=== PATIENT | female | born 1985 | race Caucasian/White ===

== ENCOUNTER 2022-08-22 15:17 | Outpatient (REF) | payer BC, SELFPAY ==
[2022-08-27 10:55] LABS: H Pylori Breath Test Negative (Negative)
== END 2022-08-22 15:18 | disposition home or self-care (01) ==
LOC: HO.LNP 15:17
PROVIDERS: Visit Provider Physician Assistant
DX: Z01.818 Encounter for other preprocedural examination (principal); E66.01 Morbid (severe) obesity due to excess calories; K21.9 Gastro-esophageal reflux disease without esophagitis; Z90.3 Acquired absence of stomach [part of]
CPT/HCPCS: 83013

== ENCOUNTER 2022-09-10 11:08 | Outpatient (REF) | payer BC, SELFPAY ==
--- NOTE | ~2022-09-10 | XR_ITS ---
EXAMINATION: XR CHEST CLINICAL INFORMATION: Gastroesophageal reflux COMPARISON: None TECHNIQUE: 2 views of the chest were obtained. FINDINGS: No significant abnormality is noted involving the heart, lungs, mediastinum, bony thorax or soft tissues. XR/XR chest 2V IMPRESSION: Unremarkable examination.
--- NOTE | 2022-09-10 11:17 | ECG_ITS ---
Test Reason : gerd Blood Pressure : / mmHG Vent. Rate : 060 BPM Atrial Rate : 060 BPM P-R Int : 178 ms QRS Dur : 090 ms QT Int : 424 ms P-R-T Axes : 032 062 052 degrees QTc Int : 424 ms Normal sinus rhythm Normal ECG No previous ECGs available Referred By: Zina Guerrero Electronically Signed By:HENRY HOPKINS MD
[2022-09-10 11:29] LABS: MANUAL DIFF FLAG NO
[2022-09-10 11:42] LABS: Basophils Percent Auto 0.6 % (0-2); Eosinophils Absolute Auto 0.4 X10*3/uL (0.0-0.4); Eosinophils Percent Auto 7.3 % (0-4); Hematocrit 34.6 % (37.0-47.0); Hemoglobin 10.9 g/dl (12.0-16.0); Imm Gran Abs Auto 0.01 X10*3/uL (0.00-0.03); Imm Gran Pct Auto 0.2 % (0.0-0.4); Lymphocytes Absolute Auto 1.3 X10*3/uL (1.2-4.9); Lymphocytes Percent Auto 24.8 % (20-40); Mean Corpuscular HGB Conc 31.5 g/dl (31.0-35.0); Mean Corpuscular Hemoglobin 25.1 pg (27.0-33.0); Mean Corpuscular Volume 79.7 fL (80.0-98.0); Monocytes Absolute Auto 0.5 X10*3/uL (0.1-1.2); Monocytes Percent Auto 8.6 % (2-11); Neutrophils Absolute Auto 3.1 x10*3/uL (2.0-8.3); Neutrophils Percent Auto 58.5 % (45-73); Platelet Count 227 X10*3/uL (160-400); Red Blood Count 4.34 X10*6/uL (4.20-5.50); Red Cell Distribution Width 13.9 % (11.0-16.0); White Blood Count 5.3 X10*3/uL (4.8-10.8)
[2022-09-10 12:19] LABS: Estimated Average Glucose 91 mg/dL; Hemoglobin A1c % 4.8 %
[2022-09-10 13:03] LABS: Alanine Aminotransferase 12 U/L (0-31); Albumin Level 3.7 g/dL (3.5-5.0); Alkaline Phosphatase 54 U/L (39-117); Anion Gap 11 (12-20); Aspartate Amino Transferase 14 U/L (5-31); Bilirubin Total 0.6 mg/dL (0.0-1.0); Blood Urea Nitrogen 11 mg/dL (9-16); Carbon Dioxide 26 mmol/L (22-29); Chloride 112 mmol/L (96-108); Cholesterol 128 mg/dL; Estimated Glomerular Filt Rate > 60; Glucose Random 89 mg/dL (60-115); HDL Cholesterol 41 mg/dL; Iron 27 mcg/dL (30-160); LDL Cholesterol Calculated 73 mg/dl; Percent Iron Saturation 8 % (15-50); Potassium 4.7 mmol/L (3.3-5.1); Sodium 144 mmol/L (135-145); Total Iron Binding Capacity 352 mcg/dL (228-428); Total Protein 6.6 g/dL (6.5-8.0); Triglycerides 71 mg/dL; Unsaturated Iron Binding 325 ug/dL
[2022-09-10 13:27] LABS: Folate 11.5 ng/mL (> or = 4.0); Vitamin B12 640 pg/mL (200-900)
[2022-09-10 13:30] LABS: Ferritin 5 ng/mL (10-122); Insulin 6 uU/mL (2-29); TSH reflex Free T4 2.06 uIU/mL (0.32-4.0); Vitamin D 25-OH Total 22.5 ng/mL (>30)
[2022-09-11 17:48] LABS: Calcium (PTHI) 9.1 mg/dL (8.6-10.2); PTHI 68 pg/mL (16-77)
[2022-09-14 01:29] LABS: Zinc 65 mcg/dL (60-130)
[2022-09-14 10:19] LABS: Vitamin B1 <6 nmol/L (8-30)
[2022-09-14 17:24] LABS: Vitamin A 31 mcg/dL (38-98)
== END 2022-09-10 11:09 | disposition home or self-care (01) ==
LOC: HO.XRAY 11:08
PROVIDERS: Visit Provider Physician Assistant
DX: Z01.818 Encounter for other preprocedural examination (principal); E66.01 Morbid (severe) obesity due to excess calories; K21.9 Gastro-esophageal reflux disease without esophagitis; Z90.3 Acquired absence of stomach [part of]
CPT/HCPCS: 36415; 71046; 80053; 80061; 82306; 82607; 82728; 82746; 83036; 83525; 83540; 83970; 84425; 84443; 84590; 84630; 85025; 86140; 93005

== ENCOUNTER → 2022-09-12 09:51 | Outpatient (BNVA) | payer BC, SELFPAY | PROVIDERS: Visit Provider Physician Assistant | DX: E66.01 Morbid (severe) obesity due to excess calories (principal) ==

== ENCOUNTER → 2022-09-18 11:36 | Outpatient (BNVA) | payer BC, SELFPAY | PROVIDERS: Visit Provider Dietitian, Registered | DX: E66.01 Morbid (severe) obesity due to excess calories (principal); Z71.3 Dietary counseling and surveillance | CPT/HCPCS: 97802 ==

== ENCOUNTER → 2022-10-03 10:30 | Outpatient (BNVA) | payer BC, SELFPAY | PROVIDERS: Visit Provider Physician Assistant | DX: E66.01 Morbid (severe) obesity due to excess calories (principal) ==

== ENCOUNTER 2022-10-11 08:07 | Outpatient (REF) | payer BC, SELFPAY ==
--- NOTE | ~2022-10-11 | US_ITS ---
EXAMINATION: US COMPLETE ABDOMEN WITH LIVER ELASTOGRAPHY CLINICAL INFORMATION: Gastroesophageal reflux disease without esophagitis. COMPARISON: None. TECHNIQUE: Real-time imaging of the abdominal viscera. Noninvasive ultrasound liver fibrosis assessment is performed using Anna ElastPQ point quantification shear wave elastography (2D-SWE) with a C5-2 MHz transducer. Multiple elastography samples are obtained. FINDINGS: PANCREAS: Normal. The visualized pancreatic head and body are normal in appearance. The remainder of the pancreas is obscured from visualization by the overlying bowel gas. ABDOMINAL AORTA: The proximal, middle, and distal aortic segments are normal in caliber. INFERIOR VENA CAVA: Visualized portions are normal. LIVER: The liver demonstrates normal size, contour and increased echogenicity. No focal lesion or intrahepatic biliary duct dilatation. The right lobe measures 16.4 cm in length. The left lobe measures 10.4 cm in length. Portal flow is hepatopedal. Shear wave liver elastography median stiffness is 1.59 m/s (reference: normal median stiffness is 1.3 m/s or less). IQR/median stiffness to assess sampling precision is 0.02 (reference: good quality data set is IQR/median stiffness of 0.15 or less). GALLBLADDER: Normal. The gallbladder is physiologically distended without evidence of stones, sludge, polyps, wall thickening or pericholecystic fluid. COMMON BILE DUCT: Normal in caliber measuring 0.3 cm in diameter. RIGHT KIDNEY: There is normal cortical thickness without any echogenic stones or hydronephrosis. Mild pelvic fullness is seen. The kidney measures 12.3 cm in maximum dimension. LEFT KIDNEY: Normal. No hydronephrosis. No renal calculi or focal parenchymal lesions. The kidney measures 13.2 cm in maximum dimension. SPLEEN: Normal. The spleen measures 11.3 cm in maximum dimension. FREE FLUID: None. US/US abdomen comp w elastography IMPRESSION: 1. Mild pelvic fullness right kidney without any echogenic stones. 2. Mild hepatic steatosis without focal lesion. 3. Liver elastography: Median liver stiffness measures 1.59 m/s. REFERENCE: Society of Radiologists in Ultrasound Liver Stiffness Thresholds (2019): LIVER STIFFNESS THRESHOLDS: *Liver Stiffness equal or less than 1.3 m/s: High probability of being normal. *Liver Stiffness less than 1.7 m/s: In the absence of other known clinical signs, rules out compensated advanced chronic liver disease. *Liver Stiffness 1.7-2.1 m/s: Suggestive of compensated advanced chronic liver disease but need further test for confirmation. *Liver Stiffness over 2.1 m/s: Rules in compensated advanced chronic liver disease. *Liver Stiffness over 2.4 m/s: Suggestive of clinically significant portal hypertension. QUALITY OF DATA SET: *IQR/Median value equal or less than 0.15 implies a quality data set. *IQR/Median value over 0.15 implies a poor quality data set. SIGNIFICANT CHANGE FROM PRIOR EXAM: Significant change if liver stiffness measurement is 10% or greater from prior exam. OTHER CONSIDERATIONS: The stage of liver fibrosis may be overestimated in the setting of acute hepatitis, liver inflammation, elevated liver function tests, hepatic vascular congestion, obstructive cholestasis, non-fasting state, and infiltrative diseases such as amyloidosis and lymphoma. In some patients with NAFLD, the liver stiffness thresholds for compensated advanced chronic liver disease may be lower. In causes other than viral hepatitis and NAFLD, liver stiffness thresholds are not well established.
== END 2022-10-11 08:08 | disposition home or self-care (01) ==
LOC: HO.US 08:07
PROVIDERS: Visit Provider Physician Assistant
DX: Z01.818 Encounter for other preprocedural examination (principal); E66.01 Morbid (severe) obesity due to excess calories; K21.9 Gastro-esophageal reflux disease without esophagitis; Z90.3 Acquired absence of stomach [part of]
CPT/HCPCS: 76705; 76981

== ENCOUNTER → 2022-10-15 14:30 | Outpatient (BNVA) | payer BC, SELFPAY | PROVIDERS: Visit Provider Counselor Mental Health | DX: F43.21 Adjustment disorder with depressed mood (principal) | CPT/HCPCS: 90791 ==

== ENCOUNTER 2022-10-16 08:11 | Outpatient (REF) | payer BC, SELFPAY ==
--- NOTE | ~2022-10-16 | FL_ITS ---
EXAMINATION: XR FLUOROSCOPY UPPER GI WITH AIR CLINICAL INFORMATION: Gastroesophageal reflux disease without esophagitis. COMPARISON: None. TECHNIQUE: Air-contrast upper GI examination. FINDINGS: There is normal elevation of the soft palate while saying candy. There is normal apposition of the vocal cords while saying E. Patient drank thin and thick barium and a half-inch diameter barium tablet without difficulty. No nasopharyngeal reflux or tracheal aspiration present. The esophagus is noted to be patulous and with hypomotility. No esophageal ulceration or hiatal hernia was appreciated. There is spontaneous and persistent gastroesophageal reflux to the level of the thoracic inlet which does not clear. No esophageal stricture identified. Patient is status post previous gastric surgery. There is rapid emptying of gastric content. No persistent nondistensibility, or abnormal mass, or ulceration is identified. No duodenal ulceration. FLUOROSCOPY TIME: 2.1 minutes. DOSE AREA PRODUCT: 23.607 pride centimeter squared. 18 images. 146.77 mGy. FL/FL upper GI w air IMPRESSION: Patulous esophagus with free spontaneous gastroesophageal reflux which does not clear to the level of the thoracic inlet. No esophageal stricture or ulceration appreciated.
== END 2022-10-16 08:12 | disposition home or self-care (01) ==
LOC: HO.XRAY 08:11
PROVIDERS: Visit Provider Physician Assistant
DX: Z01.818 Encounter for other preprocedural examination (principal); E66.01 Morbid (severe) obesity due to excess calories; K21.9 Gastro-esophageal reflux disease without esophagitis; Z90.3 Acquired absence of stomach [part of]
CPT/HCPCS: 74246

== ENCOUNTER → 2022-10-24 09:30 | Outpatient (BNVA) | payer BC, SELFPAY | PROVIDERS: Visit Provider Physician Assistant | DX: Z13.89 Encounter for screening for other disorder (principal) ==

== ENCOUNTER 2022-11-21 06:06 | Day surgery (SDC) | payer BC, SELFPAY ==
--- NOTE | 2022-11-15 14:11 | P.HPSUR_ITS ---
Pre-Procedural Eval Section A Date of Service: 11/15/22 The patient is an INPATIENT: No The History & Physical has been completed within 30 days and I have reviewed it.: Yes Section B Chief Complaint: Bariatric surgery status Relevant Family History (Specify if Yes): No Relevant Social History: None Present Medications: None Medical History: No relevant PMH History of Previous Operations: Relevant previous surgery/procedure and date(s) (sleeve gastrectomy) Allergies: Allergies Allergy/AdvReac Type Severity Reaction Status Date / Time povidone-iodine Allergy Mild Hives Verified 08/22/22 13:52 [From Scrub Care Povidone Iodine] Review of Systems Sugical H&P ROS: Negative: Constitution, Cardiovascular, Respiratory, Neurological, Psychiatric, Hem-Onc, Allergic/Immunologic, Gastrointestinal, Magda tourinary, Musculoskeletal, Integumentary, Endocrine and Eyes/Ears/Nose/Throat Exam Surgical H&P Exam: Normal: HEENT, Normal: Heart, Normal: Lungs, Normal: Extremities, Normal: Abdomen, Normal: Skin and Normal: Neurological Plan Diagnosis/Plan: Unchanged (EGD to assess for esphagitis due to severe GERD. Inability to stop PPIs for H pylori test. Risks for perforation and bleeding were discussed with patient. She is in agreement with the plan) I have reviewed the history and physical and performed a pertinent physical examination on my patient. No changes have occurred unless specified. Time Spent With Patient Time: Total time managing care of this patient today ____ minutes.
--- NOTE | 2022-11-20 11:08 | P.CONAN_ITS ---
Documented by User: Tatyana Mahoney NP 11/20/22 11:09 HPI - Anesthesia Eval Consult details Narrative: 37yo F for Upper Endoscopy PMFSH Active Problems Active Problems: All Active Problems (Updated 11/18/22 @ 11:00 by Celeste Fuentes RN) Morbid exogenous obesity (Acute) Pre-op evaluation (Acute) GERD (gastroesophageal reflux disease) (Acute) Adjustment disorder with depressed mood (Acute) S/P gastric sleeve procedure (Acute) Past Medical History Medical History GERD (gastroesophageal reflux disease) Obesity Family History Family History Mother Obese Hypertension Father Glaucoma Hypertension Brother No problems noted. Sister No problems noted. Son No problems noted. Daughter No problems noted. Daughter No problems noted. Surgical History Surgical History H/O carpal tunnel repair H/O toe surgery Hx of section Hx of cholecystectomy S/P gastric sleeve procedure Social History Social History Alcohol intake: current Alcohol intake frequency: holidays/special occasions only Patient Tobacco Use Status: Never used Tobacco Use of substances other than those prescribed or required for medical reasons: No Advance Directives: No Advance Directives Information Provided: Yes Meds Allergies Allergy/AdvReac Type Severity Reaction Status Date / Time povidone-iodine Allergy Mild Hives Verified 11/18/22 11:01 [From Scrub Care Povidone Iodine] Home Medications Medication Instructions Recorded Confirmed Last Taken Type omeprazole 20 mg capsule,delayed 20 mg PO BID 10/24/22 11/18/22 Unknown History release Exam Exam Date and Time: November 20, 2022 1108 Pertinent Lab Results Pertinent Lab Results: Laboratory Tests 09/10/22 09/10/22 11:28 11:28 WBC 5.3 Hgb 10.9 L Hct 34.6 L Plt Count 227 Sodium 144 Potassium 4.7 Chloride 112 H Carbon Dioxide 26 BUN 11 Creatinine 0.64 Narrative Narrative: EKG 08/2022 Vent. Rate : 060 BPM ? ? Atrial Rate : 060 BPM ?? P-R Int : 178 ms? QRS Dur : 090 ms ? ? QT Int : 424 ms ? ? ? P-R-T Axes : 032 062 052 degrees ?? QTc Int : 424 ms ? Normal sinus rhythm Normal ECG No previous ECGs available Assessment and Plan Assessment Anesthesia Assessment: Chart Reviewed Documented by User: Marissa Cortes MD 11/21/22 07:53 PMFSH Past Medical History Medical History GERD (gastroesophageal reflux disease) Obesity Family History Family History Mother Obese Hypertension Father Glaucoma Hypertension Brother No problems noted. Sister No problems noted. Son No problems noted. Daughter No problems noted. Daughter No problems noted. Family history of problems with anesthesia: No Surgical History Surgical History H/O carpal tunnel repair H/O toe surgery Hx of section Hx of cholecystectomy S/P gastric sleeve procedure History of Problems with Anesthesia: No Social History Social History Alcohol intake: current Alcohol intake frequency: holidays/special occasions only Patient Tobacco Use Status: Never used Tobacco Use of substances other than those prescribed or required for medical reasons: No Advance Directives: No Advance Directives Information Provided: Yes Meds Allergies Allergy/AdvReac Type Severity Reaction Status Date / Time povidone-iodine Allergy Mild Hives Verified 11/18/22 11:01 [From Scrub Care Povidone Iodine] Home Medications Medication Instructions Recorded Confirmed Last Taken Type omeprazole 20 mg capsule,delayed 20 mg PO BID 10/24/22 11/18/22 Unknown History release Exam Height,Weight and Vital Signs: Height 5 ft 7 in Weight 113.398 kg Vital Signs Temp Pulse Resp BP Pulse Ox O2 Del Method 11/21/22 06:32 97.4 F 84 18 156/82 H 100 Room Air Pertinent Lab Results Pertinent Lab Results: Laboratory Tests 09/10/22 09/10/22 11:28 11:28 WBC 5.3 Hgb 10.9 L Hct 34.6 L Plt Count 227 Sodium 144 Potassium 4.7 Chloride 112 H Carbon Dioxide 26 BUN 11 Creatinine 0.64 Lab Results 11/21/22 11/21/22 Range/Units 06:10 06:10 Urine Test NEGATIVE (NEGATIVE) COVID-19 ([facility]) Negative (Negative) COVID-19 Clin Com See Note Airway Mallampati Class: II TM Dist: >3cm Neck ROM: Full Loose/Missing/Broken Teeth: No Heart: RRR Lungs: CTAB Assessment and Plan Assessment Anesthesia Assessment: Anesthesia Plan Discussed Final Anesthetic Review Family History of Problems with Anesthesia: No History of Problems with Anesthesia: No NPO: Yes ASA Class: III Final Preanesthetic Review: No Changes in Pt Med Stat, Meds/Allgs Chart Reviewed , Consent Obtained/Reviewed and Anes Risks/Benef Reviewed Patient Risk: Intermediate Procedure Risk: Low Assessment/Block/Sedation in SS: Assess/Block/Sedation-SS Anesthetic Plan Anesthetic Plan: MAC: Disposition: Standard PACU
[2022-11-21 06:32] VITALS: BP 156/82; PULSE 84; RESP 18; TEMP 36.3; O2SAT 100; BMI 39.1
[2022-11-21 06:34] LABS: UPreg QC Valid YES; Urine Pregnancy NEGATIVE (NEGATIVE)
[2022-11-21 06:36] VITALS: BMI 39.1
[2022-11-21 06:40] LABS: COVID-19 Test Negative (Negative); IDNOW Serial# 9DB6401D
[2022-11-21] MEDS: Lactated Ringers 1,000 ML 100 ML IVCONT (06:48)
--- NOTE | 2022-11-21 07:25 | PM.OP ---
Brief Operative Note Date of Service: 11/21/22 Pre-op diagnosis: GERD and s/p sleeve gastrectomy Post-op diagnosis: same (& 1) significant gastric fundus redundancy, 2) diaphragmatic hernia ) Procedure: PROCEDURE DATE: 11/21/2022 PREOPERATIVE DIAGNOSIS: GERD, s/p sleeve gastrectomy POSTOPERATIVE DIAGNOSIS: ?Same as above. 1) esophagitis grade II, 2) gastric fundus redundancy PROCEDURE: [id number] with biopsies Surgeon: ?Golden Cabrales M.D.. Ph.D. Licensing And Registration Director: None ? Anesthesia: IV sedation Estimated blood loss: ?Minimal FINDINGS AND PROCEDURE: ? OPERATIVE INDICATIONS: ?The patient is a 37 year old female known to me who underwent a laparoscopic sleeve gastrectomy elsewhere. The patient had inadequate weight loss so far and complains of persistent GERD. Based on this information I recommended an upper endoscopy to evaluate the patient's symptoms. Risks and complications of the surgery were discussed with the patient in advance particularly the possibility of perforation or bleeding that may require surgical intervention. The patient understood the risks and was in agreement with the plan. ? PROCEDURE: After informed consent was obtained by the patient, the patient was ?transferred to the Operating Room and was placed in the supine position.? After successful induction of IV sedation, a mouth block was inserted and the patient was placed in the left lateral decubitus position. An upper endoscopy was performed next, the oropharynx and esophagus appeared within the normal limits. There was no hiatal hernia. The z-line was irregular with tongues of gastric mucosa protruding in 25-50% of esophageal circumference.. Two biopsies were obtained from the distal esohagus 2-3 cm proximal to the GE junction and two additional biopsies from the GE junction. The sleeve was entered. There was proximal redundancy with a lateral chamber ending into a more narrow distal sleeve which I believe it is the cause of the patient's GERD. The distal sleeve is of even caliber and somewhat enlarged.There was no stricture or ulcer. Biopsies were obtained from the proximal sleeve as well as the distal antrum. No significant bleeding was noted from any of the biopsy sites. The scope was then advanced into the duodenum which appeared to be normal as well. At that point the duodenum ?and the sleeve were decompressed and the scope was withdrawn from the patient's mouth. The patient extubated and was transferred in stable condition to the Recovery Room for further care. I was present and performed all steps of the procedure. There were no residents to assist with this case. Golden Cabrales M.D., Ph.D. Surgeon: Lawrence Cabrales MD Anesthesia: MAC Was an Licensing And Registration Director used for this Procedure?: No Estimated blood loss (mL): 0 IV fluids (mL): 400 Urine output (mL): 0 (No Lehman to record output) Pathology: other (Path: 1) antrum x1, 2) proximal sleeve/gastric fundus x1, 3) EGJ x2, 4) distal esophagus x2) Condition: stable Disposition: PACU
[2022-11-21 08:11] VITALS: BP 127/78; PULSE 69; RESP 18; TEMP 36.6; O2SAT 100
[2022-11-21 08:26] VITALS: BP 129/79; PULSE 62; RESP 18; TEMP 36.6; O2SAT 100
== END 2022-11-21 09:12 | disposition home or self-care (01) ==
PROVIDERS: Nurse Practitioner; Visit Provider Surgery
PROC: 0DJ08ZZ Inspection of Upper Intestinal Tract, Via Natural or Artificial Opening Endoscopic (ICD-10-PCS; CPT 43235; principal; 2022-11-21 07:30)
DX: K21.9 Gastro-esophageal reflux disease without esophagitis (principal); Z98.84 Bariatric surgery status; K20.80 Other esophagitis without bleeding; K22.89 Other specified disease of esophagus; K31.89 Other diseases of stomach and duodenum; K44.9 Diaphragmatic hernia without obstruction or gangrene; Z79.899 Other long term (current) drug therapy; Z91.041 Radiographic dye allergy status; Z20.822 Contact with and (suspected) exposure to COVID-19
CPT/HCPCS: 43239; 81025; 87635; 88305; 88342

== ENCOUNTER → 2022-11-29 09:30 | Outpatient (BNVA) | payer BC, SELFPAY | PROVIDERS: Visit Provider Physician Assistant | DX: Z13.89 Encounter for screening for other disorder (principal) ==

== ENCOUNTER → 2022-12-31 13:58 | Outpatient (BNVA) | payer BC, SELFPAY | PROVIDERS: Visit Provider Physician Assistant | DX: Z13.89 Encounter for screening for other disorder (principal) ==

== ENCOUNTER → 2023-01-20 10:25 | Outpatient (BNVA) | payer BC, SELFPAY | PROVIDERS: Visit Provider Physician Assistant ==

== ENCOUNTER → 2023-02-03 08:00 | Outpatient (BNVA) | payer BC, SELFPAY | PROVIDERS: Visit Provider Surgery ==

== ENCOUNTER → 2023-02-19 08:12 | Outpatient (BNVA) | payer BC, SELFPAY | PROVIDERS: Visit Provider Surgery ==

== ENCOUNTER 2023-02-21 08:46 | Outpatient (REF) | payer BC, SELFPAY ==
[2023-02-21 09:04] LABS: MANUAL DIFF FLAG NO
[2023-02-21 09:25] LABS: Basophils Percent Auto 0.7 % (0-2); Eosinophils Absolute Auto 0.3 X10*3/uL (0.0-0.4); Eosinophils Percent Auto 7.1 % (0-4); Hematocrit 37.3 % (37.0-47.0); Hemoglobin 11.8 g/dl (12.0-16.0); Imm Gran Abs Auto 0.01 X10*3/uL (0.00-0.03); Imm Gran Pct Auto 0.2 % (0.0-0.4); Lymphocytes Absolute Auto 1.3 X10*3/uL (1.2-4.9); Lymphocytes Percent Auto 28.5 % (20-40); Mean Corpuscular HGB Conc 31.6 g/dl (31.0-35.0); Mean Corpuscular Hemoglobin 25.5 pg (27.0-33.0); Mean Corpuscular Volume 80.6 fL (80.0-98.0); Mean Platelet Volume 11.2 fL (9.4-12.3); Monocytes Absolute Auto 0.4 X10*3/uL (0.1-1.2); Monocytes Percent Auto 9.1 % (2-11); Neutrophils Absolute Auto 2.4 x10*3/uL (2.0-8.3); Neutrophils Percent Auto 54.4 % (45-73); Platelet Count 262 X10*3/uL (160-400); Red Blood Count 4.63 X10*6/uL (4.20-5.50); Red Cell Distribution Width 13.5 % (11.0-16.0); White Blood Count 4.4 X10*3/uL (4.8-10.8)
[2023-02-21 09:32] LABS: Estimated Average Glucose 97 mg/dL
[2023-02-21 10:15] LABS: Alanine Aminotransferase 14 U/L (0-31); Albumin Level 3.9 g/dL (3.5-5.0); Alkaline Phosphatase 58 U/L (39-117); Anion Gap 10 (12-20); Aspartate Amino Transferase 16 U/L (5-31); Bilirubin Total 1.1 mg/dL (0.0-1.0); Blood Urea Nitrogen 12 mg/dL (9-16); C Reactive Protein 0.13 mg/dL (< or = 0.50); Calcium 9.3 mg/dL (8.4-10.2); Carbon Dioxide 24 mmol/L (22-29); Chloride 107 mmol/L (96-108); Cholesterol 134 mg/dL; Estimated Glomerular Filt Rate > 60; Glucose Random 90 mg/dL (60-115); HDL Cholesterol 48 mg/dL; LDL Cholesterol Calculated 74 mg/dl; Potassium 4.3 mmol/L (3.3-5.1); Sodium 137 mmol/L (135-145); Total Protein 7.1 g/dL (6.5-8.0); Triglycerides 61 mg/dL
[2023-02-21 10:23] LABS: TSH reflex Free T4 1.41 uIU/mL (0.32-4.0)
[2023-02-21 10:48] LABS: Insulin 5 uU/mL (2-29)
[2023-02-21 13:42] LABS: Prothrombin Time 11.5 SEC (10.0-13.1)
[2023-02-21 13:44] LABS: Partial Thromboplastin Time 30.7 SEC (26.0-36.4)
== END 2023-02-21 08:47 | disposition home or self-care (01) ==
LOC: HO.LAB 08:46
PROVIDERS: Visit Provider Surgery
DX: Z13.89 Encounter for screening for other disorder (principal)
CPT/HCPCS: 36415; 80053; 80061; 83036; 83525; 84443; 85025; 85610; 85730; 86140

== ENCOUNTER 2023-02-27 10:57 | Inpatient (IN) | payer BC, SELFPAY ==
[2023-02-19 10:49] VITALS: BMI 38.6
--- NOTE | 2023-02-22 12:42 | MHC.SHP ---
Pre-Procedural Eval Section A Date of Service: 02/22/23 The patient is an INPATIENT: Yes The History & Physical has been completed within 30 days and I have reviewed it.: Yes Section B Chief Complaint: obesity Relevant Family History (Specify if Yes): No Relevant Social History: None Present Medications: None Medical History: No relevant PMH History of Previous Operations: Relevant previous surgery/procedure and date(s) (laparoscopic sleeve gastrectomy) Allergies: Allergies Allergy/AdvReac Type Severity Reaction Status Date / Time salmon oil Allergy Intermediate hives/throat Verified 02/19/23 11:46 itching povidone-iodine Allergy Mild Hives Verified 02/19/23 11:46 [From Scrub Care Povidone Iodine] Review of Systems Sugical H&P ROS: Negative: Constitution, Cardiovascular, Respiratory, Neurological, Psychiatric, Hem-Onc, Allergic/Immunologic, Gastrointestinal, Genitourinary, Musculoskeletal, Integumentary, Endocrine and Eyes/Ears/Nose/Throat Exam Surgical H&P Exam: Normal: HEENT, Normal: Heart, Normal: Lungs, Normal: Extremities, Normal: Abdomen, Normal: Skin and Normal: Neurological Plan Diagnosis/Plan: Unchanged I have reviewed the history and physical and performed a pertinent physical examination on my patient. No changes have occurred unless specified. Time Spent With Patient Time: Total time managing care of this patient today ____ minutes.
--- NOTE | 2023-02-26 08:32 | P.CONAN_ITS ---
Documented by User: Tatyana Mahoney NP 02/26/23 08:37 HPI - Anesthesia Eval Consult details Narrative: 37yo F for Revision Sleeve Gastrectomy to Gastrectomy Sleeve,EGD,poss diaphragmatic hernia,poss ventral hernia,poss open, PMFSH Active Problems Active Problems: All Active Problems (Updated 02/19/23 @ 10:48 by Sarah Neely, RN) Obesity (Acute) BMI 20.0-20.9, adult (Acute) BMI 38.0-38.9,adult (Acute) Morbid exogenous obesity (Acute) Pre-op evaluation (Acute) GERD (gastroesophageal reflux disease) (Acute) Adjustment disorder with depressed mood (Acute) S/P gastric sleeve procedure (Acute) Past Medical History Medical History (Updated 07/08/23 @ 15:12 by Binta Hollingsworth) Depression Obesity GERD (gastroesophageal reflux disease) Family History Family History Mother Obese Hypertension Father Glaucoma Hypertension Brother No problems noted. Sister No problems noted. Son No problems noted. Daughter No problems noted. Daughter No problems noted. Family history of problems with anesthesia: No Surgical History Surgical History H/O carpal tunnel repair H/O toe surgery History of esophagogastroduodenoscopy (EGD) Hx of section Hx of cholecystectomy S/P gastric sleeve procedure History of Problems with Anesthesia: No Social History Household Members: Family Housing: House Are you a primary healthcare network consultant to a significant other at home: No Do you presently have visiting nurse or other home services: No Alcohol intake: current Alcohol intake frequency: holidays/special occasions only Patient Tobacco Use Status: Never used Tobacco Meds Allergies Allergy/AdvReac Type Severity Reaction Status Date / Time salmon oil Allergy Intermediate hives/throat Verified 03/21/23 09:42 itching povidone-iodine Allergy Mild Hives Verified 03/21/23 09:42 [From Scrub Care Povidone Iodine] Home Medications Medication Instructions Recorded Confirmed Last Taken Type sucralfate 100 mg/mL oral 10 ml PO BID 03/21/23 04/17/23 Unknown History suspension (Carafate) Exam Exam Date and Time: February 26, 2023 0832 Height,Weight and Vital Signs: Height 5 ft 7 in Weight 111.856 kg Pertinent Lab Results Pertinent Lab Results: Laboratory Tests 02/21/23 09:01 Blood Type O Positive Antibody Screen NEGATIVE Laboratory Tests 02/21/23 02/21/23 09:01 09:01 WBC 4.4 L Hgb 11.8 L Hct 37.3 Plt Count 262 Sodium 137 Potassium 4.3 Chloride 107 Carbon Dioxide 24 BUN 12 Creatinine 0.64 Narrative Narrative: EKG 08/2022 Vent. Rate : 060 BPM ? ? Atrial Rate : 060 BPM ?? P-R Int : 178 ms? QRS Dur : 090 ms ? ? QT Int : 424 ms ? ? ? P-R-T Axes : 032 062 052 degrees ?? QTc Int : 424 ms ? Normal sinus rhythm Normal ECG No previous ECGs available Assessment and Plan Assessment Anesthesia Assessment: Chart Reviewed Final Anesthetic Review Family History of Problems with Anesthesia: No History of Problems with Anesthesia: No Documented by User: Popeye Veras MD 08/07/23 23:14 [facility] Past Medical History Medical History (Updated 07/08/23 @ 15:12 by Binta Hollingsworth) Depression Obesity GERD (gastroesophageal reflux disease) Functional capacity: independent ambulation Family History Family History Mother Obese Hypertension Father Glaucoma Hypertension Brother No problems noted. Sister No problems noted. Son No problems noted. Daughter No problems noted. Daughter No problems noted. Surgical History Surgical History H/O carpal tunnel repair H/O toe surgery History of esophagogastroduodenoscopy (EGD) Hx of section Hx of cholecystectomy S/P gastric sleeve procedure Social History Household Members: Family Housing: House Are you a primary healthcare network consultant to a significant other at home: No Do you presently have visiting nurse or other home services: No Alcohol intake: current Alcohol intake frequency: holidays/special occasions only Patient Tobacco Use Status: Never used Tobacco Meds Allergies Allergy/AdvReac Type Severity Reaction Status Date / Time salmon oil Allergy Intermediate hives/throat Verified 03/21/23 09:42 itching povidone-iodine Allergy Mild Hives Verified 03/21/23 09:42 [From Scrub Care Povidone Iodine] Home Medications Medication Instructions Recorded Confirmed Last Taken Type sucralfate 100 mg/mL oral 10 ml PO BID 03/21/23 04/17/23 Unknown History suspension (Carafate) Exam Airway Mallampati Class: III Loose/Missing/Broken Teeth: Yes Assessment and Plan Assessment Anesthesia Assessment: Anesthesia Plan Discussed Final Anesthetic Review NPO: Yes ASA Class: III Final Preanesthetic Review: Meds/Allgs Chart Reviewed, Consent Obtained/Reviewed and Anes Risks/Benef Reviewed Patient Risk: Intermediate Procedure Risk: Intermediate Anesthetic Plan Anesthetic Plan: GA and Agree w/ Assess. and Plan Disposition: Standard PACU
[2023-02-26 14:41] LABS: COVID-19 Test Negative (Negative); IDNOW Serial# BCCEAD1C
[2023-02-27] VITALS (9 sets, daily range): BP systolic 128–165; BP diastolic 65–101; PULSE 82–97; RESP 15–18; TEMP 36.4–36.8; O2SAT 98–100
--- NOTE | ~2023-02-27 | XR_ITS ---
EXAMINATION: XR ABDOMEN KUB CLINICAL INDICATION: Evaluate for foreign body. Missing needle. COMPARISON: None available. TECHNIQUE: AP view of the abdomen. FINDINGS: Dilated gas-filled loops of small bowel measuring up to 4 cm throughout the abdomen. There are multiple surgical clips identified in the upper abdomen. A reference imaging of the foreign body in question was provided. This is not identified within the field of view of the radiograph. XR/XR abdomen 1V IMPRESSION: Missing needle not visualized within the field of view.
[2023-02-27] MEDS: Lactated Ringers 1,000 ML 999 ML IV (11:24)
[2023-02-27] MEDS: Aprepitant 32 MG/4.4 ML VIAL IVPUSH (11:24)
[2023-02-27 11:41] LABS: UPreg QC Valid YES; Urine Pregnancy NEGATIVE (NEGATIVE)
--- NOTE | 2023-02-27 12:08 | P.BOP_ITS ---
Brief Operative Note Date of Service: 02/27/23 Pre-op diagnosis: Severe obesity with comorbidities (see below) Post-op diagnosis: same Procedure: INITIAL PATIENT BMI ON PRESENTATION AT OUR OFFICE: 42.7 kg/m2 LAST BMI BEFORE SURGERY: 39 kg/m2 COMORBIDITIES: GERD, liver steatosis ?The patient presented to the Weight Management Program with significant obesity that was negatively impacting the patient's comorbidities as listed above.? The program is a phased program with a special focus on preoperative medical weight management to promote substantial weight loss and prepare the patients for the second phase of the program: bariatric surgery. The patient participated in an intensive weekly lifestyle ?intervention and exercise program during which the patient ?has lost between the initial office visit and the last preoperative visit 29.4lbs, or 10.79% of initial actual body weight. It was deemed appropriate for the patient to now have bariatric surgery. In light of the current Covid-19 pandemic and the well documented strong association of obesity and increased risk of worse outcomes if infected with Covid-19 (REFERENCES: https://pubmed.ncbi.nlm.nih.gov/59670975/ ,? https://pubmed.ncbi.nlm. nih.gov/40225656/ ), any delay in undergoing bariatric surgery may lead to the patient's worsening health condition and increased?risk of more severe Covid-19 disease if infected. In addition a recent?study from [facility] published in [facility] [facility] on 09/10/2021 ([email or web address]) found that, among patients with obesity, substantial weight loss achieved with surgery was associated with improved outcomes of COVID-19 infection. The findings suggest that obesity can be a modifiable risk factor for the severity of COVID-19 infection. In addition, the patient met the BMI-criteria for bariatric surgery based on the BMI on initial presentation. The patient should not be penalized for achieving such weight loss because ?it is not sustainable long-term without surgical intervention and it was achieved in preparation for bariatric surgery ?under my direction and based on my published research ([email or web address]: [email or web address]).[email or web address] and? https://www.soard.org/article/[email or web address](50)81486-X/pdf ) ?that a 10% preoperative weight loss improves long-term weight loss after surgery and reduces perioperative complications.? Insurance carriers such as [facility] have endorsed my recommendations ?and have included in their policies criteria to include a 10% preoperative weight loss requirement. PROCEDURE: Esophago-gastroscopy, laparoscopic repair of diaphragmatic hernia, laparoscopic lysis of adhesions, laparoscopic sleeve gastrectomy and laparoscopic gastropexy INDICATIONS: This is a 37 year-old female who was electively scheduled for laparoscopic, possibly open sleeve gastrectomy revision. The patient has a previous sleeve gastrectomy on 01/07/2012 at [facility] with Dr. Osuna. Preoperative work-up including an UGI and EGD is suggestive of a very large proximal pouch of retained gastric fundus as well as incomplete distal antral resection. The objective of this operation is to redo the sleeve. The risks and complications of the procedure were discussed with the patient in advance, particularly the possibility of ; pulmonary embolism; staple line leak; bleeding; GERD; cardiac, pulmonary, or renal complications; as well as long-term problems such as insufficient weight loss, vitamin deficiency, strictures, or ulcers. The patient understood all the risks, and was in agreement to proceed with surgery. DESCRIPTION OF PROCEDURE: After informed consent was obtained from the patient, the patient was given preoperative antibiotics, and was transferred to the operating room. After successful induction of general anesthesia, pneumatic compression devices were placed on both lower extremities. An upper endoscopy was performed next. The oropharynx and esophagus appeared to be within normal limits. There was a diaphragmatic hernia present.. The stomach was entered. Then after all fluid and air were suctioned and the stomach was fully decompressed, the scope was withdrawn and secured in the mid esophagus. The patient was then prepped and draped in the usual sterile manner, and abdominal access was established at the right upper quadrant with the Suzi technique. A 12 mm blunt port was inserted, and the abdomen was insufflated with CO2 to a pressure of 15 mmHg. Under direct visualization, additional ports were placed, specifically two 5 mm Versi-step ports to the left upper quadrant, and a 5 mm Versi-Step port to the right upper quadrant. 1% lidocaine plain was used to infiltrate all port sites as well as all fascia defects. Using the EndoClose suture passer device, I placed a #1 Polysorb tie across the falciform ligament in order to retract it up against the abdominal wall and prevent injury of the ligament with our instruments during the procedure. Following that, the patient was placed in a steep reverse Trendelenburg position. An additional 5 mm port was placed to the right flank for the Mediflex retractor that was used to retract the left lobe of the liver. The gastro-esophageal fat pad was opened with the ultrasonic device (Thkalierbeagnes, Olympus) and the anterior esophagus and hiatus were exposed. The angle of His was opened with the ultrasonic device the fundus of the stomach from any diaphragmatic and splenic attachments. I then opened the gastrocolic ligament between the transverse colon and the greater curvature of the stomach with the ultrasonic device to enter the lesser sac. The dissection continued all the way to the angle of His until the left hever was completely dissected at its entirety. There was also a hiatal hernia present. I continued dissecting along the hiatus toward the left hever and the angle of His. I fully mobilized the fat pad that was incarcerated in the hernia. I then continued by dissecting even further into the posterior retro-esophageal space all the way to the angle of His. I continued to mobilize the esophagus into the mediastinum circumferentially. Both vagal nerves were seen and preserved. At that point, I was able to have at least 3 to 5 cm of esophagus into the abdomen.?I completely mobilized the esophagus from both the left and right hever and I had a good mobilization of the esophagus circumferentially, The stomach was then divided transversely with six Endo RAMÍREZ-45 purple loads and one RAMÍREZ-60 purple load using the [facility] [employer] stapler and loads. Every effort was made that the gastric sleeve had a tubular shape and an even caliber throughout. An endoscopy was performed before the first fire to ensure that I did not narrow the gastro-esophageal junction. Once the sleeve resection was completed, the staple line of the gastric sleeve was reinforced with Hemoclips. I closed the hernia defect with three interrupted #0 Surgidac sutures using the Endo Stitch device, two of which was placed posterior and one of which anterior to the esophagus. When I was placing the 2nd posterior suture?with the Endostitch, as I was passing the needle through the left hever I felt a pop and as I passed the needle through I noticed that about 1/3 of the needle was missing. The remaining needle with the suture was retireved from the patient's abdomen. However the 1/3 needle could not be visualized. I suspected that it was withing the left hever muscle. An abdominal xray was performed and confirned that the remaining piece of the needle was somewhere in the patient's left upper quadrant. I loked carefully around the hiatal area and I could not visualize the remaining piece of the needle, As I stated I suspected I believe it was withing the left hever. I decided to leave it in place, as it is not sharp, I was not sure where exactly it was and I would have to damage the left hever to locate the needle. This is a vital structure and damaging it would put the patient to risk of a hernia recurrence and it would jeopardize the repair of the present hernia which in my opinion it was vital to control the patient's primary symptom of severe GERD. I notified the education analyst about this and she came to the room. She agreed with the plan and an appropriate report will be filed regarding the instrument malfunction. I also notified the patient's designated personal property appraiser and I will inform the patient tomorrow about this. The resected stomach was retrieved without difficulty from the Suzi port. A gastropexy was then performed in order to prevent postoperative GERD and partial gastric volvulus. Several interrupted 2.0 Surgidac sutures were placed between the sleeve's staple line and the previously divided greater omentum and gastro-colic ligament using the Endo-Stitch device. ?An upper endoscopy was performed. There was no narrowing at the GE junction. The scope was easily advanced all the way to the pylorus which was clearly visualized. There was no narrowing anywhere and the sleeve's caliber was even throughout. The sleeve's staple line was inspected and there was no evidence of ischemia, bleeding or dehiscence. At that point the gastroscope was withdrawn from the patient?s mouth while we were decompressing the bowel and the stomach from any remaining air. I looked into the lesser sac to see how the sleeve was situating and it was situating well. There was no bleeding from the staple line, spleen, or short gastric vessels. The Mediflex retractor was removed, and the undersurface of the liver was inspected and there was no bleeding. The patient was placed in supine position. I closed the fascial defect of the 12 mm port site with a figure of eight #1 Polysorb suture. Then 30cc Ropivacaine plain with 10 mg of Dexamethasone were used to infiltrate the fascial closure as well as all skin incisions. A total of 7ml of Zynrelef was used at the Suzi port site. At this point, the abdomen was deflated, all ports were removed under direct vision, and no bleeding was noted from any of the port sites. The skin incisions were irrigated with saline and were closed with 4-0 absorbable monofilament sutures. Steri-Strips and OpSites were used to cover all incisions. The patient was extubated and was transferred in stable condition to the recovery room for further care. I was present and performed all jha parts of the procedure. Ms. Guerrero was the registered medical assistant. There were no residents to assist with this case. Golden Cabrales MD, PhD, FACS Surgeon: Lawrence Cabrales MD Anesthesia: GETA, local and other (TAP block and 7ml Zynrelef) Was an Computer Network Specialist used for this Procedure?: No Computer Network Specialist: Zina Guerrero Estimated blood loss (mL): 10 IV fluids (mL): 2,500 Urine output (mL): 0 (No Lehman to record output) Pathology: other (Stomach) Condition: stable Disposition: PACU
--- NOTE | 2023-02-27 12:12 | PM.PNGS ---
Subjective Subjective Date of Service: 02/28/23 Interval history: Feels well. Mild incisional pain. She is tolerating phase 1 bariatric diet Physical Exam Vital Signs: Vital Signs: Last Vital Signs Temp 98.3 F 02/27/23 11:12 Pulse 86 02/27/23 11:12 Resp 15 02/27/23 11:12 BP 141/96 H 02/27/23 11:12 Pulse Ox 98 02/27/23 11:12 O2 Del Method Room Air 02/27/23 11:12 BMI result Body Mass Index 38.6 GI: Inspection: Yes normal to inspection, Yes incision (charlie, dry and intact) and Yes obesity Palpation (GI): Soft to palpation Extrem: Right lower extremity: normal to inspection (no calf tenderness) Left lower extremity: normal to inspection (no calf tenderness) Objective Data Active Medications Lactated Ringer's (Lr) 1,000 mls @ 100 mls/hr IVCONT .Q10H HARJIT Lactated Ringer's (Lr) 1,000 mls @ 999 mls/hr IV .Q1H1M HARJIT Stop: 02/27/23 13:00 Last Admin: 02/27/23 11:24 Dose: 999 mls/hr Documented By: MAU Labs 02/27/23 16:43 02/27/23 16:43 Labs: Laboratory Results - last 24 hr 02/26/23 02/27/23 14:17 10:55 Urine Test NEGATIVE COVID-19 (PHOEBE) Negative COVID-19 Clin Com See Note Procedures Date of Service Date of Service: 02/28/23 Progress Note: A&P Assessment and plan (1) Obesity: Status: Acute Assessment and Plan: s/p laparoscopic sleeve gastrectomy revision, lysis of adhesions, diaphragmatic hernia repair and gastropexy Doing well Will check am labs and if OK the patient will be discharged home I also explained to the patient the intraoperative event that a portion of a needle we used for the diaphragmatic hernia had to be left in the abdomen. I also showed her the actual needle singh, the size of the needle that was left in the hever and a picture of the hever from the repair we did for her. (2) BMI 39.0-39.9,adult: Status: Acute (3) GERD (gastroesophageal reflux disease): Status: Acute (4) S/P gastric sleeve procedure: Status: Acute (5) Steatosis, liver: Status: Acute (6) S/P laparoscopic sleeve gastrectomy: Status: Acute (7) S/P repair of paraesophageal hernia: Status: Acute (8) Diaphragmatic hernia: Status: Acute Time Spent With Patient Time: Total time managing care of this patient today ____ minutes. Quality Stroke Does the patient have a stroke diagnosis?: No VTE Prior VTE?: No VTE Risk Level:: Surgical - moderate VTE Device Contraindication: N/A - Device Ordered VTE Drug Contraindication: Treatment Not Indicated
--- NOTE | 2023-02-27 16:29 | P.DS_ITS ---
DS: Providers Provider Date of Service: 02/28/23 Date of admission: 02/27/23 10:57 Primary care physician: Unknown Physician DS: Diagnosis Discharge Diagnosis (1) Obesity: Status: Acute (2) BMI 39.0-39.9,adult: Status: Acute (3) GERD (gastroesophageal reflux disease): Status: Acute (4) S/P gastric sleeve procedure: Status: Acute (5) Steatosis, liver: Status: Acute DS: Summary Hospital Course Hospital Course: ADMITTING DIAGNOSIS: morbid obesity s/p sleeve gastrectomy, para esoohageal hernia DISCHARGE DIAGNOSIS: same, s/p laparoscopic sleeve gastrectomy and repair diaphragmatic hernia PAST SURGICAL HISTORY: sleeve gastrectomy 2011, section, cholecystectomy PROCEDURE: upper endoscopy, laparoscopic sleeve gastrectomy and repair of diaphragmatic hernia hernia DISCHARGE SUMMARY: History of Present Illness: The patient is a 37 year-old woman with a BMI of 42.6 kg/m2 and associated co- morbidities as described above. The patient had extensive work-up, lost 25.8 lbs preoperatively and was electively scheduled for laparoscopic, possible open sleeve gastrectomy and gastropexy. Risks and complications of the surgery were discussed with the patient in advance, particularly the possibility of , pulmonary embolism, anastomotic leak, bleeding, bowel injury, GERD, cardiac, renal or pulmonary complications. The patient understood all the risks and was in agreement with the surgical plan. Hospital Course: The patient underwent an uneventful laparoscopic sleeve gastrectomy with gastropexy and repair of diaphragmatic hernia on the day of admission. Postoperatively, the patient was transferred to the surgical floor. The patient received IV Acetaminophen and IV dilaudid for pain control. Patient was started on bariatric phase 1 diet POD #0. On postoperative day one, the patient was feeling well without nausea, vomiting, fevers, or tachycardia. The patient had some mild incisional pain and the abdomen was soft. On the morning of postoperative day one, the patient was continued on 1 ounce of water or ice every half hour. During the day, the patient did fairly well, having some incisional pain, but able to ambulate adequately and to tolerate liquids well. Since the patient is doing well, we decided that the patient was ready to be discharged. The patient was given instructions to follow-up with me next week and to call my office for any fever over 101, persistent abdominal pain, nausea, vomiting, GERD, symptoms of DVT such as calf tenderness, or leg swelling, or pulmonary embolism such as chest pain or shortness of breath. The patient was also instructed to drink 40-60 ounces of liquids per day using the 1-ounce cups. The patient had been given prescriptions for Tylenol for pain, Zofran prn for nausea, and pantoprazole and carafate previously. The patient was encouraged to ambulate and use the incentive spirometer. The patient was allowed to shower, but no baths, and encouraged to stay active at home. All of these instructions were given to the patient personally. All questions were answered and the patient understood all instructions, the instructions were also given to the patient in print. Time Spent with Patient Time attestation: Total time managing care of this patient today ____ minutes. Discharge coordination time: Less than 30 minutes Quality: Safe Use of Opioids Does Pt have an Active Cancer Diagnosis on the Problem List?: No Quality: Stroke Does the patient have a stroke diagnosis?: No Physical Exam Vital Signs: Vital Signs: Last Vital Signs Temp 98.3 F 02/27/23 11:12 Pulse 86 02/27/23 11:12 Resp 15 02/27/23 11:12 BP 141/96 H 02/27/23 11:12 Pulse Ox 98 02/27/23 11:12 O2 Del Method Room Air 02/27/23 11:12 BMI result Body Mass Index 38.6 DS: Data Data Completed and Pending Pending studies at discharge: Pending at discharge 02/27/23 15:59 Surgical [PTH] Routine Labs on day of discharge: Laboratory Results - last 24 hr 02/27/23 10:55 Urine Test NEGATIVE Discharge Plan Discharge Anticipated Discharge Date/Time: 02/28/23 10:26 Patient Disposition: Home, Self-Care Discharge Diagnosis: s/p revision of previous sleeve gastrectomy and repair of paraesophageal hernia Referrals: Physician,Unknown J [Primary Care Provider] - 1 Week Discharge Medications: Continued pantoprazole 40 mg tablet,delayed release (DR/EC) 40 mg PO DAILY Qty: 30 5RF Discontinued Vitron-C 65 mg iron- 125 mg tablet,delayed release (DR/EC) 1 tab PO BEDTIME Qty: 30 5RF thiamine HCl (vitamin B1) 100 mg tablet 100 mg PO DAILY Qty: 30 5RF cholecalciferol (vitamin D3) 25 mcg (1,000 unit) capsule 25 mcg PO DAILY Qty: 30 5RF Discharge Orders: Discharge Order (Routine); Ordered 02/28/23 Ordered By: Lawrence Cabrales Activity on Discharge: No heavy lifting Stand Alone Forms: Patient Portal Discharge page Care Plan Goals: weight loss Health Concerns: obesity Plan of Treatment: No tub baths, sex or returning to work until discussed at first post op appointment. No exercise, alcohol, tobacco or illegal drug use. Continue to use incentive spirometer hourly while awake. Walk in home for 5- 10 minutes every 2 hours during the first week. Continue phase 1 diet today and start phase 2 diet tomorrow morning. Follow all instructions in the bariatric handbook and call with any questions. 1. Please call your doctor or come back to the emergency room should any new symptoms arise. 2. You will receive a courtesy call from [facility] 24-48 hours after discharge. 3. Activity: abstain from alcohol, practice limited stair climbing, no bending, no driving, no exercise, no illicit substances, no lifting, no sex, no tub bath, no work. 4. Diet: continue as discussed with bariatric team.. 5. Dressing Change/Wound Care: Do not change or remove surgical dressings unless they are wet or soiled. 6. Call your doctor if: - Your temperature exceeds 101.5 F - You experience excessive pain or swelling - You have an unexpected reaction to medication - You have excessive bleeding - You experience continued vomiting/nausea - Your incision begins to separate - Your incision shows signs of infection such as increased redness, swelling, excessive pain, heat, or drainage (light blood or clear fluid is normal) 7. General instructions: No lifting greater than 5 lbs for the next 4 weeks[address] driving within 24 hours of taking narcotic pain medications. If you do not move your bowels in the next 2 days, please take milk of magnesia over the counter. Please follow the post op diet and do not advance your diet until you are seen in the office in about 2 weeks. Please walk around your home every hour or two to prevent blood clots from forming in your legs. You do not need to wake from sleeping to walk. Please sleep in a bed or couch to prevent kinking at the hips and knees. Please take your incentive spirometer (your lung public address system operator) home with you and use it for the next few days to prevent pneumonias. You may shower, no hot tubs, baths or swimming pools. Please call the office with any questions or concerns such as increasing abdominal pain, fever, chills, shortness of breath, chest pain, leg pain or swelling, or redness or drainage from your incisions. Do not hesitate to contact the office with any questions at . The patient's medical history has been reviewed and they are considered low risk for post op DVT and therefore DVT prophylaxis is not considered necessary. Travel after surgery was reviewed. The patient has not disclosed any travel plans during the first 30 days after surgery and they have been advised that within the first 30 days after surgery any bus, plane, train or car travel over 2 hours in duration is contraindicated due to the possibility of developing blood clots from immobility. Any travel, needs to include periods of ambulation of 10 minutes in duration every 2 hours. The patient was instructed to discuss any plans for travel during this period with their bariatric surgeon. Assessment: stable post op revision sleeve gastrectomy and paraesophageal hernia repair Discharge Date/Time: 02/28/23 10:23
[2023-02-27 17:07] LABS: Anion Gap 17 (12-20); Blood Urea Nitrogen 10 mg/dL (9-16); Calcium 8.6 mg/dL (8.4-10.2); Carbon Dioxide 19 mmol/L (22-29); Chloride 105 mmol/L (96-108); Creatinine Clr Calc Pharmacy 142.6; Estimated Glomerular Filt Rate > 60; Glucose Random 139 mg/dL (60-115); Potassium 4.2 mmol/L (3.3-5.1); Sodium 137 mmol/L (135-145)
[2023-02-27 17:10] LABS: Hematocrit 36.8 % (37.0-47.0); Hemoglobin 11.6 g/dl (12.0-16.0)
--- NOTE | 2023-02-27 17:38 | PHA.MEDREC ---
Pharmacy Consult ? Medication Reconciliation Pharmacy has completed the medication reconciliation.
[2023-02-27] MEDS: Lactated Ringers 1,000 ML 100 ML IVCONT (17:39)
[2023-02-27] MEDS: ondansetron HCL 4 MG/2 ML VIAL IVPUSH (17:50)
[2023-02-27] MEDS: ceFAZolin Sodium/Dextrose,Iso 2 GM/50 ML PIGGYBACK IV (18:11)
[2023-02-27] MEDS: Acetaminophen 1,000 MG/100 ML PIGGYBACK 16.7 MG IV (19:15)
[2023-02-27] MEDS: 0.9 % Sodium Chloride Flush 3 ML SYRINGE IVFLUSH (19:20)
[2023-02-27] MEDS: Famotidine/PF 20 MG/2 ML VIAL IVPUSH (19:20)
[2023-02-28] MEDS: Acetaminophen 1,000 MG/100 ML PIGGYBACK 16.7 MG IV ×2 (00:24→05:23)
[2023-02-28] MEDS: ondansetron HCL 4 MG/2 ML VIAL IVPUSH ×2 (00:24→08:19)
[2023-02-28 03:35] VITALS: BP 137/96; PULSE 80; RESP 18; TEMP 36.6; O2SAT 97
[2023-02-28] MEDS: Lactated Ringers 1,000 ML 100 ML IVCONT (03:51)
[2023-02-28 06:11] LABS: MANUAL DIFF FLAG NO
[2023-02-28 06:31] LABS: Basophils Percent Auto 0.1 % (0-2); Hematocrit 34.7 % (37.0-47.0); Hemoglobin 11.1 g/dl (12.0-16.0); Imm Gran Abs Auto 0.05 X10*3/uL (0.00-0.03); Imm Gran Pct Auto 0.4 % (0.0-0.4); Lymphocytes Absolute Auto 0.6 X10*3/uL (1.2-4.9); Lymphocytes Percent Auto 5.6 % (20-40); Mean Corpuscular Hemoglobin 25.6 pg (27.0-33.0); Mean Corpuscular Volume 80.1 fL (80.0-98.0); Monocytes Absolute Auto 0.5 X10*3/uL (0.1-1.2); Monocytes Percent Auto 4.5 % (2-11); Neutrophils Absolute Auto 10.2 x10*3/uL (2.0-8.3); Neutrophils Percent Auto 89.4 % (45-73); Platelet Count 223 X10*3/uL (160-400); Red Blood Count 4.33 X10*6/uL (4.20-5.50); Red Cell Distribution Width 13.9 % (11.0-16.0); White Blood Count 11.4 X10*3/uL (4.8-10.8)
[2023-02-28 06:35] LABS: Anion Gap 16 (12-20); Blood Urea Nitrogen 7 mg/dL (9-16); Calcium 8.9 mg/dL (8.4-10.2); Carbon Dioxide 18 mmol/L (22-29); Chloride 105 mmol/L (96-108); Creatinine Clr Calc Pharmacy 180.8; Estimated Glomerular Filt Rate > 60; Glucose Random 111 mg/dL (60-115); Potassium 3.8 mmol/L (3.3-5.1); Sodium 135 mmol/L (135-145)
[2023-02-28 06:52] VITALS: BP 136/84; PULSE 75; RESP 16; TEMP 36.1; O2SAT 98
[2023-02-28] MEDS: Famotidine/PF 20 MG/2 ML VIAL IVPUSH (08:19)
--- NOTE | 2023-02-28 08:53 | MHC.CM.PN ---
pt dcd home no skilled servceis ordered by
--- NOTE | 2023-03-03 09:20 | HO.POSTANES ---
Post Anesthesia Evaluation Post Anesthesia Evaluation Date of Service: 02/28/23 Vital Signs: 0652: 136/84, 75, 16, 97F, 98% Anesthesia: General Endotracheal-GETA Mental Status: Awake Pain Control: Satisfactory Nausea/Vomiting: None Hydration: Adequate Anesthesia-Related Issues: No Anes. Related Issues
== END 2023-02-28 10:23 | disposition home or self-care (01) | DRG 403 ==
LOC: HO.SSSA 16:29 → HO.S3 17:03
PROVIDERS: Nurse Practitioner; Physician Assistant; Physician Assistant Surgical; Admitting Provider Surgery; Visit Provider Surgery
PROC: 0DB64Z3 Excision of Stomach, Percutaneous Endoscopic Approach, Vertical (ICD-10-PCS; principal; 2023-02-27 12:50)
DX: E66.01 Morbid (severe) obesity due to excess calories (principal); K76.0 Fatty (change of) liver, not elsewhere classified; K44.0 Diaphragmatic hernia with obstruction, without gangrene; F32.A Depression, unspecified; K21.9 Gastro-esophageal reflux disease without esophagitis; Z68.31 Body mass index [BMI] 31.0-31.9, adult; Z20.822 Contact with and (suspected) exposure to COVID-19; Z79.899 Other long term (current) drug therapy
CPT/HCPCS: 36415; 74018; 80048; 81025; 85014; 85018; 85025; 86850; 86900; 86901; 87635; 88307; 88342; A4649; C9088; C9145; J0131; J0690; J1100; J1170; J2250; J2370; J2405; J2795; J3010

== ENCOUNTER → 2023-03-04 10:30 | Outpatient (BNVA) | payer BC, SELFPAY | PROVIDERS: Visit Provider Physician Assistant Surgical ==

== ENCOUNTER → 2023-03-21 09:32 | Outpatient (BNVA) | payer BC, SELFPAY | PROVIDERS: Visit Provider Physician Assistant Surgical ==

== ENCOUNTER 2023-04-17 09:14 | Outpatient (AMB) | payer BC, SELFPAY ==
--- NOTE | 2023-04-17 09:05 | A.OFFVIS_ITS ---
Intake VS Expanded 04/17/23 09:07 Height 5 ft 7 in Weight 226 lb 2 oz BMI 35.4 Intake Visit Reasons: VIDEO PO LSG 02/27/23 Allergies salmon oil Allergy (Intermediate, Verified 03/21/23 09:42) hives/throat itching povidone-iodine [From Scrub Care Povidone Iodine] Allergy (Mild, Verified 03/21/23 09:42) Hives Medication List - Last Reconciled 04/17/23 by Zina Guerrero PA-C pantoprazole 40 mg PO DAILY sucralfate (Carafate) 10 mL PO BID HPI HPI Comments History of Present Illness Details Pt is now 6 weeks s/p revision of LSG. No n/v/reflux or abd pain. Lost 4 lbs over 1 month Meal plan 9am - Celebrate 4:1 2 scoops UAM 1 pm - same shake 5 pm -Isophase water - 20 grams Think bar 7- pm. Peloton - 4d/week - 250 calories, HIT, ST classes. PFSH Medical History (Updated 02/27/23 @ 19:44 by Lawrence Cabrales MD) Depression GERD (gastroesophageal reflux disease) Obesity Surgical History H/O carpal tunnel repair H/O toe surgery History of esophagogastroduodenoscopy (EGD) Hx of section Hx of cholecystectomy S/P gastric sleeve procedure Family History Mother Obese Hypertension Father Glaucoma Hypertension Brother No problems noted. Sister No problems noted. Son No problems noted. Daughter No problems noted. Daughter No problems noted. Social History Household Members: Family Housing: House Are you a primary student career development specialist to a significant other at home: No Do you presently have visiting nurse or other home services: No Alcohol intake: current Alcohol intake frequency: holidays/special occasions only Patient Tobacco Use Status: Never used Tobacco Assessment & Plan Assessment & Plan (1) S/P laparoscopic sleeve gastrectomy: Code(s): Z98.84 - Bariatric surgery status Plan: 6 weeks post op s/p revision and HH repair. Minimal weight loss No change in meal plan Exericise - needs to increase the intensity of her work outs. Do spin class - intrmediate 45 minutes. Increaase to 5d/wk for 400 calories burned each day - not consecutive days. Next appt with me in 3 weeks. (2) S/P repair of paraesophageal hernia: Code(s): Z98.890 - Other specified postprocedural states; Z87.19 - Personal history of other diseases of the digestive system Telehealth Telehealth Location of provider rendering services: practice address Location of patient: address on file Patient Identification confirmed using: Name, : Yes Telehealth method: video Patient verbally consented to treatment: Yes Patient verbally consented to billing insurance company: Yes Patient informed of any privacy concerns related to visit: Yes Coding Level of Care Code Global (37134) Diagnoses S/P laparoscopic sleeve gastrectomy Z98.84 S/P repair of paraesophageal hernia Z98.890; Z87.19
[2023-04-17 09:07] VITALS: BMI 35.4
== END 2023-04-17 09:15 | disposition home or self-care (01) ==
LOC: HO.HBS 09:14
PROVIDERS: Visit Provider Physician Assistant
DX: Z98.84 Bariatric surgery status (principal); Z98.890 Other specified postprocedural states; Z87.19 Personal history of other diseases of the digestive system
CPT/HCPCS: 99024

== ENCOUNTER → 2023-04-17 09:14 | Outpatient (BNVA) | payer BC, SELFPAY | PROVIDERS: Visit Provider Physician Assistant ==

== ENCOUNTER 2023-07-08 13:06 | Outpatient (AMB) | payer BC, SELFPAY ==
--- NOTE | 2023-07-08 15:10 | MHC.WMTHER ---
Intake Intake Visit Reasons: (TV) PO LSG 02/27/23 Allergies salmon oil Allergy (Intermediate, Verified 03/21/23 09:42) hives/throat itching povidone-iodine [From Scrub Care Povidone Iodine] Allergy (Mild, Verified 03/21/23 09:42) Hives [facility] Medical History (Updated 07/08/23 @ 15:12 by Binta Hollingsworth) Depression Obesity GERD (gastroesophageal reflux disease) Surgical History H/O carpal tunnel repair H/O toe surgery History of esophagogastroduodenoscopy (EGD) Hx of section Hx of cholecystectomy S/P gastric sleeve procedure Family History Mother Obese Hypertension Father Glaucoma Hypertension Brother No problems noted. Sister No problems noted. Son No problems noted. Daughter No problems noted. Daughter No problems noted. Social History Household Members: Family Housing: House Are you a primary child care education coordinator to a significant other at home: No Do you presently have visiting nurse or other home services: No Alcohol intake: current Alcohol intake frequency: holidays/special occasions only Patient Tobacco Use Status: Never used Tobacco Behavioral Health Assessment Weight Management Therapy Therapy Notes Details Tristen is a few months post weight loss surgery. She reported struggling since the end of april with increased anxiety, feeling of impending doom, poor sleep, and racing thoughts. Patient identified that her baby's birthday was the beginning of Jun who at 11 weeks old. She stated that this time of year is awful for her until after [place]. Deana stated that she wants to address her anxiety and get help so that she can heal. We talked about all of the things that are helpful for trauma and regulating nervous system. She will return in office tomorrow for EMDR. Patient is looking to have weight loss surgery revision to help improve her health and quality of life. Pt is currently not in therapy and has been in the past due to depression, loss of infant daughter. She was put on medication in the past but due to horrible side effects stopped it. After she moved from [place] and moved here last year with her family for work. She has no known history of problems with drugs or alcohol. Also no history of problems with drugs or alcohol. Presenting Concerns Referral Source provider Reason for referral weight loss surgery evaluation Precipitating Event obesity Living Situation Current Living Situation Own At risk of losing current housing? No Satisfied with current living situation? Yes Comments She lives with her and two children. Food/Weight/Diet Expectations of change weight loss and maintenance History/Relationship with food Patient reported that she would use food to cope with her depression and anxiety. Fried foods, rice, beans, pasta, bread, also would skip meals and then pick at food. History/Relationship with weight Heaviest 395lbs and 220lbs has been her lowest. History/Relationship with dieting sleeve in 2011 and lost 140lbs and then got , she lost her baby at 11 weeks old and then had another baby. She gained back 50lbs. Binge Eating Do you frequently eat large amounts of food in short periods of time, not feeling physically hungry? No Do you feel out of control when you eat a large amount of food in a short period of time? No Do you eat large amounts of food rapidly and typically alone? Yes Night Eating Do you wake up at least once during the night to eat? No If you wake up in the night, do you find that it is necessary to eat something in order to fall back asleep? No Do you have little or no appetite in the morning and feel very hungry in the evening, often overeating between dinner and when you go to bed? Yes Social History Family history and relationship Patient was born in [place], then moved to [place] met her and had children. She moved here last year to work in [employer] business for a local [employer]. She has two children and lost one child at 11 weeks old in 2013. 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 none Education Highest grade completed college Preferred learning style Auditory, Verbal, Written, Learn by doing and Visual Currently enrolled in educational program? No Interested in further educational program? 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 No Financial Situation Describe current financial situation Comfortable Financial assistance? None Service Service? No Mental Health and Addiction Treatment Current/Past substance abuse? No Current/Past addictive behavior concerns? No Pain Screening Current pain? No Pain in the last few months? No Medications Is the patient compliant with medications? Yes Does the patient have Canas Guardian in place? Not applicable Does the patient use complimentary health approaches? No Trauma/Abuse History History of trauma? Yes Assessment & Plan Assessment & Plan (1) Anxiety disorder: Comment: R/O PTSD Code(s): F41.9 - Anxiety disorder, unspecified Plan Tristen is a few months post weight loss surgery. She reported struggling since the end of april with increased anxiety, feeling of impending doom, poor sleep, and racing thoughts. Patient identified that her baby's birthday was the beginning of Jun who at 11 weeks old. She stated that this time of year is awful for her until after [place]. Deana stated that she wants to address her anxiety and get help so that she can heal. We talked about all of the things that are helpful for trauma and regulating nervous system. She will return in office tomorrow for EMDR. Telehealth Telehealth Location of provider rendering services: other Location of patient: other Patient Identification confirmed using: Name, : Yes Telehealth method: video Patient verbally consented to treatment: Yes Patient verbally consented to billing insurance company: Yes Patient informed of any privacy concerns related to visit: Yes Minutes spent on Phone/Video with Pt.: 25 Coding Level of Care Code Tele Psytx 30 mins (10829) Diagnoses Anxiety disorder F41.9 Time Spent (min) 25
== END 2023-07-08 15:07 | disposition home or self-care (01) ==
LOC: HO.HBST 13:06
PROVIDERS: Visit Provider Counselor Mental Health
DX: F41.9 Anxiety disorder, unspecified (principal)
CPT/HCPCS: 90832

== ENCOUNTER → 2023-07-08 13:06 | Outpatient (BNVA) | payer BC, SELFPAY | PROVIDERS: Visit Provider Counselor Mental Health ==

== ENCOUNTER 2023-07-09 10:31 | Outpatient (AMB) | payer BC, SELFPAY ==
--- NOTE | 2023-07-09 11:31 | MHC.WMTHER ---
Intake Intake Visit Reasons: (OV) PO LSG 02/27/23 Allergies salmon oil Allergy (Intermediate, Verified 03/21/23 09:42) hives/throat itching povidone-iodine [From Scrub Care Povidone Iodine] Allergy (Mild, Verified 03/21/23 09:42) Hives [facility] Medical History (Updated 07/08/23 @ 15:12 by Binta Hollingsworth) Depression Obesity GERD (gastroesophageal reflux disease) Surgical History H/O carpal tunnel repair H/O toe surgery History of esophagogastroduodenoscopy (EGD) Hx of section Hx of cholecystectomy S/P gastric sleeve procedure Family History Mother Obese Hypertension Father Glaucoma Hypertension Brother No problems noted. Sister No problems noted. Son No problems noted. Daughter No problems noted. Daughter No problems noted. Social History Household Members: Family Housing: House Are you a primary home health care worker to a significant other at home: No Do you presently have visiting nurse or other home services: No Alcohol intake: current Alcohol intake frequency: holidays/special occasions only Patient Tobacco Use Status: Never used Tobacco Behavioral Health Assessment Weight Management Therapy Therapy Notes Details EMDR test run session complete, GOKUL O. Patient also completed worst things list for EMDR. Tearful but calmer at the end of session. Patient is a few months post weight loss surgery. She reported struggling since the end of april with increased anxiety, feeling of impending doom, poor sleep, and racing thoughts. Patient identified that her baby's birthday was the beginning of Jun who at 11 weeks old. She stated that this time of year is awful for her until after [place]. Deana stated that she wants to address her anxiety and get help so that she can heal. We talked about all of the things that are helpful for trauma and regulating nervous system. She will return in office tomorrow for EMDR. Patient is looking to have weight loss surgery revision to help improve her health and quality of life. Pt is currently not in therapy and has been in the past due to depression, loss of daughter. She was put on medication in the past but due to horrible side effects stopped it. After she moved from [place] and moved here last year with her family for work. She has no known history of problems with drugs or alcohol. Also no history of problems with drugs or alcohol. Presenting Concerns Referral Source provider Reason for referral weight loss surgery evaluation Precipitating Event obesity Living Situation Current Living Situation Own At risk of losing current housing? No Satisfied with current living situation? Yes Comments She lives with her and two children. Food/Weight/Diet Expectations of change weight loss and maintenance History/Relationship with food Patient reported that she would use food to cope with her depression and anxiety. Fried foods, rice, beans, pasta, bread, also would skip meals and then pick at food. History/Relationship with weight Heaviest 395lbs and 220lbs has been her lowest. History/Relationship with dieting sleeve in 2011 and lost 140lbs and then got , she lost her baby at 11 weeks old and then had another baby. She gained back 50lbs. Binge Eating Do you frequently eat large amounts of food in short periods of time, not feeling physically hungry? No Do you feel out of control when you eat a large amount of food in a short period of time? No Do you eat large amounts of food rapidly and typically alone? Yes Night Eating Do you wake up at least once during the night to eat? No If you wake up in the night, do you find that it is necessary to eat something in order to fall back asleep? No Do you have little or no appetite in the morning and feel very hungry in the evening, often overeating between dinner and when you go to bed? Yes Social History Family history and relationship Patient was born in [place], then moved to [place] met her and had children. She moved here last year to work in [employer] for a local college. She has two children and lost one child at 11 weeks old in 2013. 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 none Education Highest grade completed college Preferred learning style Auditory, Verbal, Written, Learn by doing and Visual Currently enrolled in educational program? No Interested in further educational program? 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 No Financial Situation Describe current financial situation Comfortable Financial assistance? None Service Service? No Mental Health and Addiction Treatment Current/Past substance abuse? No Current/Past addictive behavior concerns? No Pain Screening Current pain? No Pain in the last few months? No Medications Is the patient compliant with medications? Yes Does the patient have Canas Guardian in place? Not applicable Does the patient use complimentary health approaches? No Trauma/Abuse History History of trauma? Yes Assessment & Plan Assessment & Plan (1) Anxiety disorder: Comment: R/O PTSD Code(s): F41.9 - Anxiety disorder, unspecified Plan Tristen is a few months post weight loss surgery. She reported struggling since the end of april with increased anxiety, feeling of impending doom, poor sleep, and racing thoughts. Patient identified that her baby's birthday was the beginning of Jun who at 11 weeks old. She stated that this time of year is awful for her until after [place]. Deana stated that she wants to address her anxiety and get help so that she can heal. We talked about all of the things that are helpful for trauma and regulating nervous system. She will return in office tomorrow for EMDR. Coding Level of Care Code Psytx >53 mins (64675) Diagnoses Anxiety disorder F41.9 Time Spent (min) 55
== END 2023-07-09 11:30 | disposition home or self-care (01) ==
PROVIDERS: Visit Provider Counselor Mental Health
DX: F41.9 Anxiety disorder, unspecified (principal)
CPT/HCPCS: 90837

== ENCOUNTER → 2023-07-09 10:31 | Outpatient (BNVA) | payer BC, SELFPAY | PROVIDERS: Visit Provider Counselor Mental Health ==

== ENCOUNTER 2023-08-28 11:00 | Outpatient (AMB) | payer BC, SELFPAY ==
--- NOTE | 2023-08-28 11:21 | A.OFFVIS_ITS ---
Intake VS Expanded 08/28/23 11:24 Height 5 ft 7 in Weight 219 lb 6 oz BMI 34.4 Intake Visit Reasons: VIDEO PO LSG 02/27/23 Allergies salmon oil Allergy (Intermediate, Verified 03/21/23 09:42) hives/throat itching povidone-iodine [From Scrub Care Povidone Iodine] Allergy (Mild, Verified 03/21/23 09:42) Hives Medication List - Last Reconciled 08/28/23 by Zina Guerrero PA-C HPI HPI Comments History of Present Illness Details Pt is 6 months s/p revision of LSG.Now recovered form bronchitis with increasing doses of prednisone, Able to exercise again - yesterday. Now getting itchy, foul smelling rashes under pannus and around umbillicus. Uses alcohol and athletes foot cream Exercise -training program on Peloto 30 days -daily work out aBOut 400 calories. Meal plan: 9am - 11 am --4:1 2 scoops 8 oz UAM 12:30 - 2 pm same shake 5pm - chicken or beef and vegetables - e ats until full Post op complications: none CANDE: never DM never HTN: never Hyperlipidemia: never GERD: 0 Satisfaction with present condition - satisfied [facility] Medical History (Updated 08/28/23 @ 11:38 by Zina Guerrero PA-C) Depression Obesity GERD (gastroesophageal reflux disease) Surgical History H/O carpal tunnel repair H/O toe surgery History of esophagogastroduodenoscopy (EGD) Hx of section Hx of cholecystectomy S/P gastric sleeve procedure Family History Mother Obese Hypertension Father Glaucoma Hypertension Brother No problems noted. Sister No problems noted. Son No problems noted. Daughter No problems noted. Daughter No problems noted. Social History Household Members: Family Housing: House Are you a primary primary care provider to a significant other at home: No Do you presently have visiting nurse or other home services: No Alcohol intake: current Alcohol intake frequency: holidays/special occasions only Patient Tobacco Use Status: Never used Tobacco Physical Exam GI Inspection: Yes incision (all well healed) and Yes Abdominal panniculus present (RASH AND ITCHY UNDER PANNUS) Assessment & Plan Assessment & Plan (1) Obesity: Code(s): E66.9 - Obesity, unspecified Plan: 6 months post op revision LSG - now recoeverd from 1 month URI, and has ex cellent meal and exericse routines. Meal plan - continue 2 4:1 shakes per day ant 9 am and 1 pm -over 1hour meal of 6 forks each protein and veg - Do not eat until full - stop before that Exercise - no changes text me weekly weights, next appt with me in 6 weeks. Patient is still morbidly obese and is not considered stable at this time. I spent 30 minutes in total speaking with the patient via video conference counseling , reviewing records and charting in patients chart. . (2) S/P laparoscopic sleeve gastrectomy: Code(s): Z98.84 - Bariatric surgery status (3) Panniculitis: Code(s): M79.3 - Panniculitis, unspecified Plan: We discussed keeping skin away from skin while exercising by using cotton gauze or paper towels. Making sure to wash or shower immediately after exercising and dry area well, may use music department chair. Clotirimazole cream ordered to use bid prn for rash or pruritus. Plan see above Medications: New clotrimazole 1% 1 appl topical BID 90 grams 3RF Telehealth Telehealth Location of provider rendering services: practice address Location of patient: address on file Patient Identification confirmed using: Name, : Yes Telehealth method: video Patient verbally consented to treatment: Yes Patient verbally consented to billing insurance company: Yes Patient informed of any privacy concerns related to visit: Yes Coding Level of Care Code Tele Est Pt Level 4 (18097) Diagnoses Obesity E66.9 S/P laparoscopic sleeve gastrectomy Z98.84 Panniculitis M79.3
[2023-08-28 11:24] VITALS: BMI 34.4
== END 2023-08-28 11:41 | disposition home or self-care (01) ==
LOC: HO.HBS 11:25
PROVIDERS: PCP Family Medicine; Visit Provider Physician Assistant
DX: E66.9 Obesity, unspecified (principal); Z68.34 Body mass index [BMI] 34.0-34.9, adult; Z90.3 Acquired absence of stomach [part of]; Z98.84 Bariatric surgery status; M79.3 Panniculitis, unspecified
CPT/HCPCS: 99214

== ENCOUNTER → 2023-08-28 11:00 | Outpatient (BNVA) | payer BC, SELFPAY | PROVIDERS: PCP Family Medicine; Visit Provider Physician Assistant ==

== ENCOUNTER 2023-10-22 09:30 | Outpatient (AMB) | payer BC, SELFPAY ==
--- NOTE | 2023-10-22 09:34 | A.OFFVIS_ITS ---
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 Exercise 100 days of Peloton exercise - on day 38. Sleeps at least 8 hours per night. Up for few hours during night often. OOB at 6:30 am 7am - 4:1 2 scoops 8 oz UAM 12 pm - same shake 3pm - has been having a third 4:1 shake with 2 scoops 6pm - 6 forks protien and 6 forks veg PFSH Medical History (Updated 08/28/23 @ 11:38 by Zina Guerrero PA-C) Depression Obesity GERD (gastroesophageal reflux disease) Surgical History H/O carpal tunnel repair H/O toe surgery History of esophagogastroduodenoscopy (EGD) Hx of section Hx of cholecystectomy S/P gastric sleeve procedure Family History Mother Obese Hypertension Father Glaucoma Hypertension Brother No problems noted. Sister No problems noted. Son No problems noted. Daughter No problems noted. Daughter No problems noted. Social History Household Members: Family Housing: House Are you a primary progressive care manager to a significant other at home: No Do you presently have visiting nurse or other home services: No Alcohol intake: current Alcohol intake frequency: holidays/special occasions only Patient Tobacco Use Status: Never used Tobacco Assessment & Plan Assessment & Plan (1) Obesity: Code(s): E66.9 - Obesity, unspecified Plan: 9 months post op, feel tired all of the time - post op labs ordered. We discussed recognizing all of her nonscale victories and the 53.2 lbs or 19.5% TBWL she has had since then. Will put her in contact with Binta for more support. Meal plan - only change is stop 3rd shake and replace with bar or yogurt. Exercise- continue same. Weigh herself weekly only - each Friday for support and changes as needed from me Appt with me in 4-5 weeks. Patient is still obese and is not considered stable at this time. I spent 30 minutes in total speaking with the patient via video conference counseling , reviewing records and charting in patients chart. . (2) S/P gastric sleeve procedure: Comment: 2011 in [place] Code(s): Z90.3 - Acquired absence of stomach [part of] (3) S/P laparoscopic sleeve gastrectomy: Code(s): Z98.84 - Bariatric surgery status Plan see above Orders: Orders Hemoglobin A1c Today E66.9 - Obesity, unspecified, Z98.84 - Bariatric surgery status Complete Blood Count Auto Diff Today E66.9 - Obesity, unspecified, Z98.84 - Bariatric surgery status Zinc Today E66.9 - Obesity, unspecified, Z98.84 - Bariatric surgery status C Reactive Protein Today E66.9 - Obesity, unspecified, Z98.84 - Bariatric surgery status Vitamin B1 Today E66.9 - Obesity, unspecified, Z98.84 - Bariatric surgery status Vitamin A Today E66.9 - Obesity, unspecified, Z98.84 - Bariatric surgery status Ferritin Today E66.9 - Obesity, unspecified, Z98.84 - Bariatric surgery status Insulin Today E66.9 - Obesity, unspecified, Z98.84 - Bariatric surgery status Lipid Panel Today E66.9 - Obesity, unspecified, Z98.84 - Bariatric surgery status IRON PROFILE Today E66.9 - Obesity, unspecified, Z98.84 - Bariatric surgery status Comprehensive Met. Panel Today E66.9 - Obesity, unspecified, Z98.84 - Bariatric surgery status Vitamin B12 and Folate Today E66.9 - Obesity, unspecified, Z98.84 - Bariatric surgery status TSH reflex Free T4 Today E66.9 - Obesity, unspecified, Z98.84 - Bariatric surgery status Vitamin D 25-OH Total Today E66.9 - Obesity, unspecified, Z98.84 - Bariatric surgery status Referrals Behavioral Health Referral E66.9 - Obesity, unspecified, Z98.84 - Bariatric hodges rgery status Nutrition/Dietitian Referral E66.9 - Obesity, unspecified, Z98.84 - Bariatric surgery status Telehealth Telehealth Location of provider rendering services: practice address Location of patient: address on file Patient Identification confirmed using: Name, : Yes Telehealth method: video Patient verbally consented to treatment: Yes Patient verbally consented to billing insurance company: Yes Patient informed of any privacy concerns related to visit: Yes Coding Level of Care Code Tele Est Pt Level 4 (08989) Diagnoses Obesity E66.9 S/P gastric sleeve procedure Z90.3 S/P laparoscopic sleeve gastrectomy Z98.84
[2023-10-22 09:36] VITALS: BMI 34.3
== END 2023-10-22 10:00 | disposition home or self-care (01) ==
LOC: HO.HBS 09:36
PROVIDERS: Referring Provider Family Medicine; Visit Provider Physician Assistant
DX: E66.9 Obesity, unspecified (principal); Z68.34 Body mass index [BMI] 34.0-34.9, adult; Z90.3 Acquired absence of stomach [part of]; Z98.84 Bariatric surgery status
CPT/HCPCS: 99214

== ENCOUNTER → 2023-10-22 09:30 | Outpatient (BNVA) | payer BC, SELFPAY | PROVIDERS: Visit Provider Physician Assistant | DX: E66.9 Obesity, unspecified (principal); Z98.84 Bariatric surgery status; M79.3 Panniculitis, unspecified ==

== ENCOUNTER 2023-11-24 09:30 | Outpatient (AMB) | payer BC, SELFPAY ==
--- NOTE | 2023-11-24 09:34 | MHC.OFFVISWM ---
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 Using clotrimazole cream for rash around umbillicus. On day # 70 of her Peloton challenge. Only weighs herself weekly now. Meal plan - 2 shakes, 1 yogurt and meal. Had labs done recently with PCP =- started on iron supplement for very low iron.Vit D, B12, lipid panel all wnl. [facility] Medical History (Updated 08/28/23 @ 11:38 by Zina Guerrero PA-C) Depression Obesity GERD (gastroesophageal reflux disease) Surgical History H/O carpal tunnel repair H/O toe surgery History of esophagogastroduodenoscopy (EGD) Hx of section Hx of cholecystectomy S/P gastric sleeve procedure Family History Mother Obese Hypertension Father Glaucoma Hypertension Brother No problems noted. Sister No problems noted. Son No problems noted. Daughter No problems noted. Daughter No problems noted. Social History Household Members: Family Housing: House Are you a primary careers counsellor to a significant other at home: No Do you presently have visiting nurse or other home services: No Alcohol intake: current Alcohol intake frequency: holidays/special occasions only Patient Tobacco Use Status: Never used Tobacco Assessment & Plan Assessment & Plan (1) Obesity: Code(s): E66.9 - Obesity, unspecified Plan: Pt is now 9 months s/p revision LSG and feels so much healthier. She is focusing on non-scale rewrads and feels mentally healthier for this also. She will follow up with Binta. No changes to meal or exercise plans. Will get the remainder of her labs drawn at [facility] soon. Follow up with PA in February for 1 year appt. (2) Panniculitis: Code(s): M79.3 - Panniculitis, unspecified (3) S/P laparoscopic sleeve gastrectomy: Code(s): Z98.84 - Bariatric surgery status Plan see above Telehealth Telehealth Location of provider rendering services: practice address Location of patient: address on file Patient Identification confirmed using: Name, : Yes Telehealth method: video Patient verbally consented to treatment: Yes Patient verbally consented to billing insurance company: Yes Patient informed of any privacy concerns related to visit: Yes Coding Level of Care Code Tele Est Pt Level 4 (75843) Diagnoses Obesity E66.9 Panniculitis M79.3 S/P laparoscopic sleeve gastrectomy Z98.84
[2023-11-24 09:38] VITALS: BMI 33.9
== END 2023-11-24 09:55 | disposition home or self-care (01) ==
LOC: HO.HBS 09:39
PROVIDERS: Referring Provider Family Medicine; Visit Provider Physician Assistant
DX: E66.9 Obesity, unspecified (principal); Z68.33 Body mass index [BMI] 33.0-33.9, adult; Z98.84 Bariatric surgery status; M79.3 Panniculitis, unspecified
CPT/HCPCS: 99214

== ENCOUNTER → 2023-11-24 09:30 | Outpatient (BNVA) | payer BC, SELFPAY | PROVIDERS: Visit Provider Physician Assistant ==

== ENCOUNTER 2024-02-11 09:13 | Outpatient (AMB) | payer BC, SELFPAY ==
--- NOTE | 2024-02-11 15:08 | MHC.WMTHER ---
Intake Intake Visit Reasons: (TV) PO LSG 02/27/23 Allergies salmon oil Allergy (Intermediate, Verified 03/21/23 09:42) hives/throat itching povidone-iodine [From Scrub Care Povidone Iodine] Allergy (Mild, Verified 03/21/23 09:42) Hives [facility] Medical History (Updated 08/28/23 @ 11:38 by Zina Guerrero PA-C) Depression Obesity GERD (gastroesophageal reflux disease) Surgical History H/O carpal tunnel repair H/O toe surgery History of esophagogastroduodenoscopy (EGD) Hx of section Hx of cholecystectomy S/P gastric sleeve procedure Family History Mother Obese Hypertension Father Glaucoma Hypertension Brother No problems noted. Sister No problems noted. Son No problems noted. Daughter No problems noted. Daughter No problems noted. Social History Household Members: Family Housing: House Are you a primary school childcare attendant to a significant other at home: No Do you presently have visiting nurse or other home services: No Alcohol intake: current Alcohol intake frequency: holidays/special occasions only Patient Tobacco Use Status: Never used Tobacco Behavioral Health Assessment Weight Management Therapy Therapy Notes Details Patient is now 1 year post weight loss surgery. She reported feeling somewhat lost since [place], she has not weighed herself or messaged anyone. Patient was constantly weighing herself daily prior to and now nothing, we discussed avoiding extreme behavior/all or nothing. She talked about how bad her loose skin is, odor and painful rashes. She wants help to have that removed. She was about 380lbs at one point. (initial appt)Patient is looking to have weight loss surgery revision to help improve her health and quality of life. Pt is currently not in therapy and has been in the past due to depression, loss of daughter. She was put on medication in the past but due to horrible side effects stopped it. After she moved from [place] and moved here last year with her family for work. She has no known history of problems with drugs or alcohol. Also no history of problems with drugs or alcohol. Presenting Concerns Referral Source provider Reason for referral weight loss surgery evaluation Precipitating Event obesity Living Situation Current Living Situation Own At risk of losing current housing? No Satisfied with current living situation? Yes Comments She lives with her and two children. Food/Weight/Diet Expectations of change weight loss and maintenance History/Relationship with food Patient reported that she would use food to cope with her depression and anxiety. Fried foods, rice, beans, pasta, bread, also would skip meals and then pick at food. History/Relationship with weight Heaviest 395lbs and 220lbs has been her lowest. History/Relationship with dieting sleeve in 2011 and lost 140lbs and then got , she lost her baby at 11 weeks old and then had another baby. She gained back 50lbs. Binge Eating Do you frequently eat large amounts of food in short periods of time, not feeling physically hungry? No Do you feel out of control when you eat a large amount of food in a short period of time? No Do you eat large amounts of food rapidly and typically alone? Yes Night Eating Do you wake up at least once during the night to eat? No If you wake up in the night, do you find that it is necessary to eat something in order to fall back asleep? No Do you have little or no appetite in the morning and feel very hungry in the evening, often overeating between dinner and when you go to bed? Yes Social History Family history and relationship Patient was born in [place], then moved to [place] met her and had children. She moved here last year to work in [employer] for a local [employer]. She has two children and lost one child at 11 weeks old in 2013. 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 none Education Highest grade completed college Preferred learning style Auditory, Verbal, Written, Learn by doing and Visual Currently enrolled in educational program? No Interested in further educational program? 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 No Financial Situation Describe current financial situation Comfortable Financial assistance? None Service Service? No Mental Health and Addiction Treatment Current/Past substance abuse? No Current/Past addictive behavior concerns? No Pain Screening Current pain? No Pain in the last few months? No Medications Is the patient compliant with medications? Yes Does the patient have Canas Guardian in place? Not applicable Does the patient use complimentary health approaches? No Trauma/Abuse History History of trauma? Yes Assessment & Plan Assessment & Plan (1) Anxiety disorder: Comment: R/O PTSD Code(s): F41.9 - Anxiety disorder, unspecified Plan Tristen is one year post weight loss surgery. She reported that her mental health has improved, minimal depression and anxiety. She is very bothered by extra skin she has from being over 380lbs in the past. She will follow up with PA next month. Telehealth Telehealth Telehealth Platform: Telephone Location of provider rendering services: other Location of patient: other Patient Identification confirmed using: Name, : Yes Telehealth method: voice only Patient verbally consented to treatment: Yes Patient verbally consented to billing insurance company: Yes Patient informed of any privacy concerns related to visit: Yes Minutes spent on Phone/Video with Pt.: 30 Coding Level of Care Code Tele Psytx 30 mins (51408) Diagnoses Anxiety disorder F41.9 Time Spent (min) 30
== END 2024-02-11 15:08 | disposition home or self-care (01) ==
LOC: HO.HBST 09:13
PROVIDERS: Visit Provider Counselor Mental Health
DX: F41.9 Anxiety disorder, unspecified (principal)
CPT/HCPCS: 90832

== ENCOUNTER → 2024-02-11 09:13 | Outpatient (BNVA) | payer BC, SELFPAY | PROVIDERS: Visit Provider Counselor Mental Health ==

== ENCOUNTER 2024-03-26 10:07 | Outpatient (AMB) | payer BC, SELFPAY ==
--- NOTE | 2024-03-26 10:08 | A.OFFVIS_ITS ---
VS Expanded 03/26/24 10:14 BP 132/85 Blood Pressure Location Rt brachial Blood Pressure Position Sitting Pulse 77 Pulse Source Pulse Oximeter Temp 97.3 F Temperature Source Temporal Artery Scan Pulse Oximetry 95 Oxygen Delivery Method Room Air Height 5 ft 7 in Weight 222 lb 12.8 oz BMI 34.9 Body Fat % 43.1 Body Fat Mass 96.0 Fat Free Mass 126.8 Visceral Fat Rating 9.0 Body Water % 40.8 Body Water Mass 90.8 Muscle Mass/Score 120.4 Basal Metabolic Rate/Score 1,783 Intake Visit Reasons: (OV) PO LSG 02/27/23 Robotics Technologist Required: No Allergies salmon oil Allergy (Intermediate, Verified 03/26/24 10:17) hives/throat itching povidone-iodine [From Scrub Care Povidone Iodine] Allergy (Mild, Verified 03/26/24 10:17) Hives Medication List - Last Reconciled 03/26/24 by HAM Weiss clotrimazole 1% 1 appl topical BID venlafaxine ER (Effexor XR) 75 mg PO DAILY HPI Comments Details: 38-year-old female returns to the office today in follow-up. She is status post revision of sleeve gastrectomy. This was performed on 02/27/2023. She is approximately 1 year and 1 month postoperative. She was last seen in the office in 12/03/2023 with a weight of 216 lb. Today's weight is 222.8 lb with a BMI of 34.9. She states her goal is to have skin removal surgery. Specifically the excess skin of her arms and stomach. She has trouble with fitting clothing for her shirts and when she and her are intimate her stomach skin would get in the way. She also has intermittent rashes to her abdomen. She has an odor as well. Meal plan: Celebrate 4 in 1 2 scoops in 8 oz almond milk, 9-930, 12-1230 pm 4 oz chicken 330 pm meal at 6 pm, 4 oz protein and 4 oz veggies Drinking 48 oz water, no soda, juice Exercise plan: just joined yesterday [email or web address] bike 3 x per week, [phone] alexander Any post op complications: none CANDE: never DM: never HTN: never Hyperlipidemia: never GERD:?0-5 scale ??0 = no symptoms ??1 = symptoms noticeable but not bothersome 2 =symptoms bothersome but not daily ? 3 = symptoms bothersome and daily 4 = symptoms affect daily activities 5 = symptoms are incapacitating, unable to do daily activities ? How bad is the heartburn: 0 ? Heartburn while lying down: 0 ? Heartburn when standing up: 0 ? Heartburn after meals: 0 ? Does heartburn change your diet: 0 ? Does heartburn wake you up from sleep: 0 ? Do you have difficulty swallowin ? Do you have pain with swallowin ? If you take medicine for your reflux, does this affect your daily life: 0 Satisfaction with present condition - satisfied or not satisfied: somewhat satisfied [facility] Medical History Depression Obesity GERD (gastroesophageal reflux disease) Surgical History History of esophagogastroduodenoscopy (EGD) H/O toe surgery S/P gastric sleeve procedure H/O carpal tunnel repair Hx of section Hx of cholecystectomy Family History Mother Obese Hypertension Father Glaucoma Hypertension Brother No problems noted. Sister No problems noted. Son No problems noted. Daughter No problems noted. Daughter No problems noted. Social History Household Members: Family Housing: House Are you a primary health and social care teacher to a significant other at home: No Do you presently have visiting nurse or other home services: No Alcohol intake: current Alcohol intake frequency: holidays/special occasions only Patient Tobacco Use Status: Never used Tobacco Physical Exam Vital Signs: Last Vital Signs Temp 97.3 F 03/26/24 10:14 Pulse 77 03/26/24 10:14 BP 132/85 03/26/24 10:14 Pulse Ox 95 03/26/24 10:14 Oxygen Delivery Method Room Air 03/26/24 10:14 BMI result Body Mass Index 34.9 Const General: cooperative and no acute distress Orientation/consciousness: patient oriented x3 Resp Effort & Inspection: normal respiratory effort Auscultation: clear to auscultation bilaterally Cardio Rate: regular rate Rhythm: regular rhythm GI Inspection: Yes normal to inspection and Yes incision (well healed) Palpation (GI): Soft to palpation and no masses Neuro General: patient oriented x3 Assessment & Plan Assessment & Plan (1) S/P laparoscopic sleeve gastrectomy: Code(s): Z98.84 - Bariatric surgery status Category: Surgical Plan: Check 1 year follow-up labs Change meal plans slightly: Celebrate 4 in 1 2 scoops in 8 oz almond milk, 9-11, 12-2 pm Georgian yogurt 4 pm meal at 6 pm, 3 oz protein and 4 oz veggies Fresh fruit, 3/4 cup berries if necessary. Encouraged to track calories and burn 2000 per week. Encouraged to send me weight measurements weekly and with any questions or concerns by text Orders: Orders C Reactive Protein Today Z98.84 - Bariatric surgery status Vitamin B1 Today Z98.84 - Bariatric surgery status Vitamin A Today Z98.84 - Bariatric surgery status TSH reflex Free T4 Today Z98.84 - Bariatric surgery status Vitamin D 25-OH Total Today Z98.84 - Bariatric surgery status Basic Metabolic Panel Today Z98.84 - Bariatric surgery status Insulin Today Z98.84 - Bariatric surgery status Hemoglobin A1c Today Z98.84 - Bariatric surgery status H Pylori Breath Test Today Z98.84 - Bariatric surgery status Complete Blood Count Auto Diff Today Z98.84 - Bariatric surgery status Lipid Panel Today Z98.84 - Bariatric surgery status IRON PROFILE Today Z98.84 - Bariatric surgery status Vitamin B12 and Folate Today Z98.84 - Bariatric surgery status Zinc Today Z98.84 - Bariatric surgery status Ferritin Today Z98.84 - Bariatric surgery status
[2024-03-26 10:14] VITALS: BP 132/85; PULSE 77; TEMP 36.3; O2SAT 95; BMI 34.9
== END 2024-03-26 10:54 | disposition home or self-care (01) ==
PROVIDERS: Visit Provider Physician Assistant Surgical
DX: E66.9 Obesity, unspecified (principal); Z68.34 Body mass index [BMI] 34.0-34.9, adult; Z90.3 Acquired absence of stomach [part of]; Z98.84 Bariatric surgery status
CPT/HCPCS: 99214

== ENCOUNTER → 2024-03-26 10:07 | Outpatient (BNVA) | payer BC, SELFPAY | PROVIDERS: Visit Provider Physician Assistant Surgical ==

== ENCOUNTER 2024-06-02 11:30 | Outpatient (AMB) | payer BC, SELFPAY ==
--- NOTE | 2024-06-02 11:12 | A.OFFVIS_ITS ---
VS Expanded 06/02/24 11:13 Height 5 ft 7 in Weight 226 lb BMI 35.4 Intake Visit Reasons: tele f/u SWL 02/27/23 Repairer Hairspring Required: No Allergies salmon oil Allergy (Intermediate, Verified 03/26/24 10:17) hives/throat itching povidone-iodine [From Scrub Care Povidone Iodine] Allergy (Mild, Verified 03/26/24 10:17) Hives Medication List - Last Reconciled 06/02/24 by HAM Weiss clotrimazole 1% 1 appl topical BID venlafaxine ER (Effexor XR) 75 mg PO DAILY HPI Comments Details: 38-year-old female returns to the office today in follow-up. She is status post revision of sleeve gastrectomy. This was performed on 02/27/2023. She is approximately 1 year and 3 month postoperative. Today's weight is 226 lb with a BMI of 35.4. She states she has been sick lately with pneumonia requiring steroids. Meal plan: Celebrate 4 in 1 2 scoops in 8 oz almond milk, 9-11, 12-2 pm Malian yogurt 4 pm meal at 6 pm, 3 oz protein and 4 oz veggies Fresh fruit, 3/4 cup berries if necessary. Drinking 48 oz water, no soda, juice Exercise plan: just joined yesterday [employer] 3 x per week, [phone] alexander [facility] Medical History Depression Obesity GERD (gastroesophageal reflux disease) Surgical History History of esophagogastroduodenoscopy (EGD) H/O toe surgery S/P gastric sleeve procedure H/O carpal tunnel repair Hx of section Hx of cholecystectomy Family History Mother Obese Hypertension Father Glaucoma Hypertension Brother No problems noted. Sister No problems noted. Son No problems noted. Daughter No problems noted. Daughter No problems noted. Social History Household Members: Family Housing: House Are you a primary home health care worker to a significant other at home: No Do you presently have visiting nurse or other home services: No Alcohol intake: current Alcohol intake frequency: holidays/special occasions only Patient Tobacco Use Status: Never used Tobacco Telehealth Telehealth Telehealth Platform: Telephone Location of provider rendering services: practice address Location of patient: address on file Patient Identification confirmed using: Name, : Yes Telehealth method: voice only Patient verbally consented to treatment: Yes Patient verbally consented to billing insurance company: Yes Patient informed of any privacy concerns related to visit: Yes Minutes spent on Phone/Video with Pt.: 15 Assessment & Plan Assessment & Plan (1) S/P laparoscopic sleeve gastrectomy: Code(s): Z98.84 - Bariatric surgery status Category: Surgical Plan: Patient very recently diagnosed with a pneumonia requiring steroids, antibiotics. She was unable to exercise. She additionally had her menstrual cycle and subsequent weight gain. I suspect that now that she is recovering and tapered off of steroid she will show significant improvement, she will now be able to return to the gym. She will follow her meal plan as listed above as well as the exercise plan. She was encouraged to text me weekly. We will continue her follow-up appointments as previously scheduled.
[2024-06-02 11:13] VITALS: BMI 35.4
== END 2024-06-02 12:45 | disposition home or self-care (01) ==
LOC: HO.HBS 11:30
PROVIDERS: Visit Provider Physician Assistant Surgical
DX: E66.09 Other obesity due to excess calories (principal); Z68.35 Body mass index [BMI] 35.0-35.9, adult; Z90.3 Acquired absence of stomach [part of]; Z98.84 Bariatric surgery status
CPT/HCPCS: 98967

== ENCOUNTER → 2024-06-02 11:30 | Outpatient (BNVA) | payer BC, SELFPAY | PROVIDERS: Visit Provider Physician Assistant Surgical | DX: Z98.84 Bariatric surgery status (principal) ==

== ENCOUNTER 2024-11-24 10:30 | Outpatient (AMB) | payer BC, SELFPAY ==
--- NOTE | 2024-11-24 09:01 | A.OFFVIS_ITS ---
VS Expanded 11/24/24 09:02 Height 5 ft 7 in Weight 214 lb BMI 33.5 Body Fat % 41.8 Body Fat Mass 89.4 Fat Free Mass 124.6 Visceral Fat Rating 15 Body Water % 39.9 Body Water Mass 85.4 Muscle Mass/Score 117 Basal Metabolic Rate/Score 1,590 Intake Visit Reasons: (TV) PO LSG 02/27/23 Senior Safety Support Manager Required: No Allergies salmon oil Allergy (Intermediate, Verified 03/26/24 10:17) hives/throat itching povidone-iodine [From Scrub Care Povidone Iodine] Allergy (Mild, Verified 03/26/24 10:17) Hives Medication List - Last Reconciled 11/24/24 by HAM Weiss clotrimazole 1% 1 appl topical BID venlafaxine ER (Effexor XR) 75 mg PO DAILY HPI Comments Details: 39-year-old female returns to the office today in follow-up. She is s/p LSG in [place] 2011, pre op weight ws 385 and lowest weight was 220. She had revision of sleeve gastrectomy performed on 02/27/[address] Cabrales. She is approximately 1 year and 9 months postoperative. Today's weight is 214 lb with a BMI of 33.5. She states she is doing ok but was sick for 6 months with PNA and influenza, cough, covid. She is now better and energy is returning. She has significantly improved in the last 2 weeks. She states her goal is to have skin removal surgery. Specifically the excess skin of her arms and stomach. She has trouble with fitting clothing for her shirts and when she and her are intimate her stomach skin would get in the way. She also has intermittent rashes to her abdomen. She states she has used the cream but with the rash she would have to put a cloth barrier and they would also bleed and have a terrible odor. She reports about 3-4 x per month. Meal plan: Celebrate 4 in 1 2 scoops in 8 oz almond milk, 9-11, 12-2 pm Grapes or orange 4 pm meal at 6 pm, 2-3 oz protein and 4 oz veggies Drinking 48 oz water, no soda, juice Exercise plan: [employer] bike 3 x per week, [phone] alexander [facility] Medical History Depression Obesity GERD (gastroesophageal reflux disease) Surgical History History of esophagogastroduodenoscopy (EGD) H/O toe surgery S/P gastric sleeve procedure H/O carpal tunnel repair Hx of section Hx of cholecystectomy Family History Mother Obese Hypertension Father Glaucoma Hypertension Brother No problems noted. Sister No problems noted. Son No problems noted. Daughter No problems noted. Daughter No problems noted. Social History Household Members: Family Housing: House Are you a primary hearing care professional to a significant other at home: No Do you presently have visiting nurse or other home services: No Alcohol intake: current Alcohol intake frequency: holidays/special occasions only Patient Tobacco Use Status: Never used Tobacco Telehealth Telehealth Telehealth Platform: Telephone Location of provider rendering services: practice address Location of patient: address on file Patient Identification confirmed using: Name, : Yes Telehealth method: voice only Patient verbally consented to treatment: Yes Patient verbally consented to billing insurance company: Yes Patient informed of any privacy concerns related to visit: Yes Minutes spent on Phone/Video with Pt.: 15 Assessment & Plan Assessment & Plan (1) S/P laparoscopic sleeve gastrectomy: Code(s): Z98.84 - Bariatric surgery status Category: Surgical Plan: Patient may use her Gatorade protein bar, 20 g, 1/2 at approximately 16:00. 3 oz of protein at night, continue with her 2 celebrate 4 in 1 shakes with 2 scoops each. Resume Peloton bike. Text weight is weekly and text with any questions or concerns. Return to clinic for 2 year postop appointment. (2) Panniculitis: Code(s): M79.3 - Panniculitis, unspecified Category: Medical Plan: Continue clotrimazole cream. She will text if this becomes ineffective so we may add a steroid cream if necessary. She has had significant weight loss and significant recurrent rashes to her abdomen causing itching, odor, bleeding. As she achieves a healthy and stable weight, we will submit to her insurance company for medically necessary skin removal surgery.
[2024-11-24 09:02] VITALS: BMI 33.5
--- OUTSIDE RECORDS SUMMARY | 2024-11-24 12:34 | XMS_ITS | Encounter Summary ---
Author Organization [facility] Address [address] [place] [address] Care Team Providers Care Senior Media Buyer Name Role Phone Rafael Madera MD Primary Care Provider [phone] Rafael Funk [facility] Unavailable [phone] Encounter Details Date Type Department Care Team (Late st Contact Info) Description 02/05/2024 Orders Only [facility] [address] [place] [phone] Rafael Madera MD [address] [place] [phone] Social History Tobacco Use Types Packs/Day Years Used Date Smoking Tobacco: Never Smokeless Tobacco: Never Alcohol Use Standard Drinks/Week Comments Never 0 (1 standard drink = 0.6 oz pur e alcohol) PHQ-2 Answer Date Recorded PHQ-2 Score 3 10/30/2023 PHQ-9 Answer Date Recorded PHQ-9 Score (Major Dep>9, Refer>14) 14 10/30/2023 Comments No Sex and Gender Information Value Date Recorded Sex Assigned at Female 08/20/2023 10:56 AM EST Legal Sex Female 12:25 PM EST Gender Identity Female 08/20/2023 10:56 AM EST Sexual Orientation Not on file documented as of this encounter Plan of Treatment Upcoming Encounters Date Type Department Care Team (Latest Contact Info) Description 06/29/2025 3:45 PM EDT CPE - Comprehensive Physical Exam [facility] [address] [place] [phone] Rafael Madera MD [address] [place] [phone] Return for Wellness Visit / CompletePhysical Exam in 2024 . documented as of this encounter Procedures * Due to [place] [employer] law, this organization might not be sharing negative HIV tests. Procedure Name Priority Date/Time Associated Diagnosis Comments CBC INCLUDES DIFFERENTIAL AND PLATELET COUNT Routine 02/05/2024 8:32 AM EDT Iron deficiency anemia, unspecified iron deficiency anemia type IRON PROFILE (IRON/TIBC), SERUM Routine 02/05/2024 8:32 AM EDT Iron deficiency anemia, unspecified iron deficiency anemia type documented in this encounter Results * Due to [place] [employer] law, this organization might not be sharing negative HIV tests. * (ABNORMAL) IRON PROFILE (IRON/TIBC), SERUM (02/05/2024 8:32 AM EDT) Iron 198(H) 40 - 190 mcg/dL [facility] Iron binding capacity 418 250 - 450 mcg/dL (calc) [facility] Iron saturation 47(H) 16 - 45 % (calc) [facility] 02/05/2024 8:32 AM EDT 02/05/2024 10:08 AM EDT Narrative Resulting Agency Comment [id number] us Rafael Madera MD LABORATORY Final Res ult Performing Organization Address City/State/[facility] Co de Phone Number [facility] [address] [place] [address] * CBC INCLUDES DIFFERENTIAL AND PLATELET COUNT (02/05/2024 8:32 AM EDT) WBC 4.5 3.8 - 10.8 Thousand/u L [facility] RBC 4.75 3.80 - 5.10 Million/uL [facility] Hemoglobin 13.3 11.7 - 15.5 g/dL [facility] Hematocrit 41.1 35.0 - 45.0 % [facility] MCV 86.5 80.0 - 100.0 fL [facility] MCH 28.0 27.0 - 33.0 pg [facility] MCHC 32.4 32.0 - 36.0 g/dL [facility] RDW 13.7 11.0 - 15.0 % [facility] PLT 223 140 - 400 Thousand/u L [facility] MPV 12.1 7.5 - 12.5 fL [facility] Neutrophils # 2399 1500 - 7800 cells/uL [facility] Lymphocytes # 1278 850 - 3900 cells/uL [facility] Monocytes # 428 200 - 950 cells/uL [facility] Eosinophils # 365 15 - 500 cells/uL [facility] Basophils # 32 0 - 200 cells/uL [facility] Neutrophils % 53.3 % [facility] Lymphocytes % 28.4 % [facility] Monocytes % 9.5 % [facility] Eosinophils % 8.1 % [facility] Basophils % 0.7 % [facility] 02/05/2024 8:32 AM EDT 02/05/2024 10:08 AM EDT Narrative Resulting Agency Comment [id number] Rafael Madera MD LAB SAME DAY RESULT Final Result Performing Organization Address City/State/[facility] Co de Phone Number [facility] [address] [place] [address] documented in this encounter Visit Diagnoses Diagnosis Iron deficiency anemia, unspecified iron deficiency anemia type documented in this encounter Care Teams Senior Media Buyer Relationship Specialty Start Date End Date Rafael Madera MD [address] [place] [address] PCP - General Family Medicine 08/20/23 Rafael Funk [facility] [address] [place] [address] Partner 11/10/23 documented as of this encounter
--- OUTSIDE RECORDS SUMMARY | 2024-11-24 12:34 | XMS_ITS | Encounter Summary ---
Author Organization [facility] Address [address] [place] [address] Care Team Providers Care Maid Cleaning Cooking Name Role Phone Rafael Madera MD Primary Care Provider [phone] Rafael Fukn [facility] Unavailable [phone] Encounter Details Date Type Department Care Team (Late st Contact Info) Description 10/30/2023 Orders Only [facility] [address] [place] [phone] Rafael Madera MD [address] [place] [address] Social History Tobacco Use Types Packs/Day Years [...] on file documented as of this encounter Mental Status * PHQ-2 Score Answer Entry Date Author 3 10/30/2023 7:00 AM Daniela Holden * Question Answer Entry Date Author Assessment Moderate symptoms 10/30/2023 7:00 AM EST Andrew Friedman documented in this encounter Plan of Treatment Upcoming Encounters Date Type Department Care Team (Latest Contact Info) Description 06/29/2025 3:45 PM EDT CPE - Comprehensive Physical Exam [facility] [address] [place] [phone] Rafael Madera MD [address] [place] [address] Return for Wellness Visit / CompletePhysical Exam in 2024 . documented as of this encounter Procedures * Due to [place] [employer] law, this organization might not be sharing negative HIV tests. Procedure Name Priority Date/Time Associated Diagnosis Comments HEPATITIS C AB WITH REFLEX TO RNA PCR, SERUM Routine 10/30/2023 11:12 AM EST Need for hepatitis C screening test CBC INCLUDES DIFFERENTIAL AND PLATELET COUNT Routine 10/30/2023 11:12 AM EST H/O bariatric surgery IRON PROFILE (IRON/TIBC), SERUM Routine 10/30/2023 11:12 AM EST H/O bariatric surgery HEMOGLOBIN A1C Routine 10/30/2023 11:12 AM EST Screening for diabetes mellitus FOLATE, SERUM Routine 10/30/2023 11:12 AM EST H/O bariatric surgery VITAMIN B12 (CYANOCOBALAMIN), SERUM Routine 10/30/2023 11:12 AM EST H/O bariatric surgery VITAMIN D, 25-HYDROXY, TOTAL, IMMUNOASSAY Routine 10/30/2023 11:12 AM EST H/O bariatric surgery Postsurgical malabsorption (HHS) LIPID PANEL WITH REFLEX TO DIRECT LDL Routine 10/30/2023 11:12 AM EST Lipid screening Screening for cardiovascular condition documented in this encounter Results * Due to [place] [employer] law, this organization might not be sharing negative HIV tests. * LIPID PANEL WITH REFLEX TO DIRECT LDL (10/30/2023 11:12 AM EST) Cholesterol 139 <200 mg/dL [facility] HDL Cholesterol 57 > OR = 50 mg/dL [facility] Triglyceride 74 <150 mg/dL [facility] LDL Cholesterol 67 mg/dL (calc) [facility] Comment: Reference range: <100 Desirable range <100 mg/dL for primary prevention; ?? <70 mg/dL for patients with CHD or diabetic patients with > or = 2 CHD risk factors. LDL-C is now calculated using the Madeleine calculation, which is a validated novel method providing better accuracy than the Friedewald equation in the estimation of LDL-C. Marlon MEJIA et al. KRYS. 2013;310(19): 0924-7151 (http://education.Breaktime Studios/faq/CVQ094) CHOL/HDL Ratio 2.4 <5.0 (calc) [facility] Cholesterol Non-HDL 82 <130 mg/dL (calc) [facility] Comment: For patients with diabetes plus 1 major ASCVD risk factor, treating to a non-HDL-C goal of <100 mg/dL (LDL-C of <70 mg/dL) is considered a therapeutic option. 10/30/2023 11:1 2 AM EST 10/30/2023 1:19 PM EST Narrative Resulting Agency Comment [id number] Rafael Madera MD LABORATORY Final Res ult Performing Organization Address City/State/[facility] Co de Phone Number [facility] [address] [place] [address] * HEMOGLOBIN A1C (10/30/2023 11:12 AM EST) Hemoglobin A1C 5.2 <5.7 % of total Hgb [facility] Comment: For the purpose of screening for the presence of diabetes: <5.7% ? Consistent with the absence of diabetes 5.7-6.4% ?Consistent with increased risk for diabetes ?(prediabetes) > or =6.5% ??Consistent with diabetes This assay result is consistent with a decreased risk of diabetes. Currently, no consensus exists regarding use of hemoglobin A1c for diagnosis of diabetes in children. According to [place] Diabetes Association (ADA) guidelines, hemoglobin A1c <7.0% represents optimal control in non- diabetic patients. Different metrics may apply to specific patient populations. Standards of Medical Care in Diabetes(ADA). Estimated Average Glucose 108 mg/dL (calc) [facility] 10/30/2023 11:1 2 AM EST 10/30/2023 1:19 PM EST Narrative Resulting Agency Comment [id number] Rafael Madera MD LABORATORY Final Res ult Performing Organization Address [facility] de Phone Number [facility] [address] [place] [phone] * HEPATITIS C AB WITH REFLEX TO RNA PCR, SERUM (10/30/2023 11:12 AM EST) Hepatitis C virus Ab NON-REACT GIGI NON-REACT GIGI [facility] Comment: HCV antibody was non-reactive. There is no laboratory evidence of HCV infection. In most cases, no further action is required. However, if recent HCV exposure is suspected, a test for HCV RNA (test code 90900) is suggested. For additional information please refer to http://education.Nano/faq/VVC21t0 (This link is being provided for informational/ educational purposes only.) 10/30/2023 11:1 2 AM EST 10/30/2023 1:19 PM EST Narrative Resulting Agency Comment [id number] Rafael Madera MD LABORATORY Final Res ult Performing Organization Address [facility] de Phone Number [facility] [address] [place] [address] * (ABNORMAL) CBC INCLUDES DIFFERENTIAL AND PLATELET COUNT (10/30/2023 11:12 AM EST) WBC 5.4 3.8 - 10.8 Thousand/u L [facility] RBC 4.14 3.80 - 5.10 Million/uL [facility] Hemoglobin 10.4(L) 11.7 - 15.5 g/dL [facility] Hematocrit 33.1(L) 35.0 - 45.0 % [facility] MCV 80.0 80.0 - 100.0 fL [facility] MCH 25.1(L) 27.0 - 33.0 pg [facility] MCHC 31.4(L) 32.0 - 36.0 g/dL [facility] RDW 13.3 11.0 - 15.0 % [facility] PLT 269 140 - 400 Thousand/u L [facility] MPV 11.8 7.5 - 12.5 fL [facility] Neutrophils # 3002 1500 - 7800 cells/uL [facility] Lymphocytes # 1393 850 - 3900 cells/uL [facility] Monocytes # 513 200 - 950 cells/uL [facility] Eosinophils # 443 15 - 500 cells/uL [facility] Basophils # 49 0 - 200 cells/uL [facility] Neutrophils % 55.6 % [facility] Lymphocytes % 25.8 % [facility] Monocytes % 9.5 % [facility] Eosinophils % 8.2 % [facility] Basophils % 0.9 % [facility] 10/30/2023 11:1 2 AM EST 10/30/2023 1:19 PM EST Narrative Resulting Agency Comment [id number] Rafael Madera MD LAB SAME DAY RESULT Final Result Performing Organization Address City/State/[facility] Co de Phone Number [facility] [address] [place] [phone] * VITAMIN D, 25-HYDROXY, TOTAL, IMMUNOASSAY (10/30/2023 11:12 AM EST) Vitamin D, 25-OH, Total 48 30 - 100 ng/mL [facility] Comment: Vitamin D Status ? 25-OH Vitamin D: Deficiency: ?<20 ng/mL Insufficiency: ? 20 - 29 ng/mL Optimal: ? > or = 30 ng/mL For 25-OH Vitamin D testing on patients on D2-supplementation and patients for whom quantitation of D2 and D3 fractions is required, the [facility]ure[facility](TM) 25-OH VIT D, (D2,D3), LC/MS/MS is recommended: order code 15578 (patients >2yrs). See Note 1 Note 1 For additional information, please refer to http://education.Qoture.iCook.tw/faq/ULE814 (This link is being provided for informational/ educational purposes only.) 10/30/2023 11:1 2 AM EST 10/30/2023 1:19 PM EST Narrative Resulting Agency Comment [id number] Rafael Madera MD LABORATORY Final Res ult Performing Organization Address [facility] de Phone Number [facility] [address] [place] [address] * FOLATE, SERUM (10/30/2023 11:12 AM EST) Folate >24.0 ng/mL [facility] Comment: ? Reference Range ? Low: ? <3.4 ? Borderline: ?3.4-5.4 ? Normal: ?>5.4 10/30/2023 11:1 2 AM EST 10/30/2023 1:19 PM EST Narrative Resulting Agency Comment [id number] Rafael Madera MD LABORATORY Final Res ult Performing Organization Address [facility] de Phone Number [facility] [address] [place] [address] * (ABNORMAL) IRON PROFILE (IRON/TIBC), SERUM (10/30/2023 11:12 AM EST) Iron 25(L) 40 - 190 mcg/dL [facility] Iron binding capacity 445 250 - 450 mcg/dL (calc) [facility] Iron saturation 6(L) 16 - 45 % (calc) [facility] 10/30/2023 11:1 2 AM EST 10/30/2023 1:19 PM EST Narrative Resulting Agency Comment [id number] Rafael Madera MD LABORATORY Final Res ult Performing Organization Address City/[facility]/ZIP Co de Phone Number [facility] [address] [place] [address] * VITAMIN B12 (CYANOCOBALAMIN), SERUM (10/30/2023 11:12 AM EST) Vitamin B12 (Cobalamins) 677 200 - 1100 pg/mL [facility] 10/30/2023 11:1 2 AM EST 10/30/2023 1:19 PM EST Narrative Resulting Agency Comment [id number] Rafael Madera MD LABORATORY Final Res ult Performing Organization Address [facility] Co de Phone Number [facility] [address] [place] [address] documented in this encounter Visit Diagnoses Diagnosis H/O bariatric surgery Bariatric surgery status Postsurgical malabsorption (HHS) Other and unspecified postsurgical nonabsorption Need for hepatitis C screening test Special screening examination for other specified viral diseases Screening for diabetes mellitus Lipid screening Screening for lipoid disorders Screening for cardiovascular condition Screening for other and unspecified cardiovascular conditions documented in this encounter Care Teams Maid Cleaning Cooking Relationship Specialty Start Date End Date Rafael Madera MD [address] [place] [phone] PCP - General Family Medicine 08/20/23 Rafael Funk [facility] [address] [place] [phone] Partner 11/10/23 documented as of this encounter
--- OUTSIDE RECORDS SUMMARY | 2024-11-24 12:34 | XMS_ITS | Clinical Summary ---
Author Organization [facility] Address [address] [place] [address] Care Team Providers Care Assistant Director Of Financial Aid Name Role Phone No, Referring Primary Care Provider Unavailabl e Allergies Active Allergy Reactions Criticality Noted Date Comments Fish Containing Products Anaphylaxis High 05/05/2015 Fish causes anaphyaxsis during only Povidone-Iodine Other (see comments) 12/24/2023 [place] Oil Rash High 10/28/2023 Throat closure Medications EPINEPHrine (EPIPEN) 0.3 mg/0.3 mL injection syringe Inject 0.3 mg into the shoulder, thigh, or buttocks muscle as directed. 10/30/2023 Active venlafaxine XR (EFFEXOR XR) 75 mg capsule Take 75 mg by mouth daily. 10/30/2023 Active benzonatate (TESSALON) 100 mg capsuleIndicati ons:Acute cough Take 1 capsule (100 mg total) by mouth 3 times a day as needed for cough. 45 capsule 09/09/2024 Active Encounters Date Type Department Care Team Description 09/10/2024 Telephone [facility] [address] [place] [phone] Taylor Watson LPN 09/10/2024 Refill [facility] [address] [place] [address] Joanie Donnelly NP Acute cough 09/10/2024 Telephone [facility] [address] [facility] [address] [place] [address] Cece Lakhani MA Medication Problem 09/09/2024 11:00 AM EST Office Visit [facility] [address] [facility] [place] [facility] [address] [place] [phone] Destiny Nazario PA Acute cough (Primary Dx); Acute bilateral back pain, unspecified back location; Influenza from Last 3 Months Family History Medical History Relation Name Comments Hypertension Father Diabetes Mother Hypertension Mother Relation Name Status Comments Father Alive Mother Alive Social History Tobacco Use Types Packs/Day Years Used Date Smoking Tobacco: Never Smokeless Tobacco: Never Tobacco Cessation:Counseling Given: Not Answered Alcohol Use Standard Drinks/Week Comments Yes 0 (1 standard drink = 0.6 oz pur e alcohol) occ Comments No Sex and Gender Information Value Date Recorded Sex Assigned at Female 03/19/2024 12:32 PM EDT Legal Sex Female 4:34 PM EST Gender Identity Female 03/19/2024 4:27 PM EDT Sexual Orientation Straight 03/19/2024 4: 27 PM EDT Last Filed Vital Signs Vital Sign Reading Time Taken Comments Blood Pressure 152/84 09/09/2024 1:32 PM EST Pulse 103 09/09/2024 1:32 PM EST Temperature 37 ??C (98.6 ??F) 09/09/2024 1:32 PM EST Respiratory Rate 18 03/19/2024 8:22 PM EDT Oxygen Saturation 98% 09/09/2024 1:32 PM EST Inhaled Oxygen Concentration - - Weight - - Height - - Body Mass Index - - Plan of Treatment Health Maintenance Due Date Last Done Comments HIV Screening 1987 Varicella Vaccines (1 of 2 - 13+ 2-dose series) 2000 Hepatitis B Vaccines (1 of 3 - 19+ 3-dose series) 2006 DTaP,Tdap,and Td Vaccines (1 - Tdap) 2009 COVID-19 Vaccine ( - 2023-2 5 season) 2024 Influenza Vaccine (#1) 2024 07/05/2021 Alcohol/Substance Use Screening 09/15/2024 Depression Screening and Follow-Up 09/15/2024 Social Drivers of Health Annual Screening 09/15/2024 Pap Smear 01/05/2027 01/06/2024 Cervical Cancer Screening 01/05/2029 HPV and Pap Smear 01/05/2029 01/06/2024 RSV Vaccine (60+ years old and patients) (1 - 1-dose 75+ series) 2062 Hepatitis C Screening Completed 10/30/2023 , 10/30/2023 Pneumococcal Vaccine: Pediatric (0-5 Years) and At-Risk Patients (6-50 Years) Aged Out No longer eligible based on patient's age to complete this topic Procedures * Due to [place] [employer] law, this organization might not be sharing negative HIV tests. Procedure Name Priority Date/Time Associated Diagnosis Comments POCT INFLUENZA A+B ABBOT, NON-INTERFACED Routine 09/09/2024 1:48 PM EST Acute cough POCT URINALYSIS DIPSTICK, NON-INTERFACED Routine 09/09/2024 1:42 PM EST Acute bilateral back pain, unspecified back location from Last 3 Months Results * Due to [place] [employer] law, this organization might not be sharing negative HIV tests. * (ABNORMAL) POCT Influenza A+B Gray, Non-Interfaced (09/09/2024 1:48 PM EST) Internal Positive Control Pass Yes Internal Negative Control Pass Yes Influenza, A Positive(A) Negative Influenza B, Manual Negative Negative Nasopharyngeal Swab 09/09/20 1:48 PM EST Destiny [facility] POINT OF CARE TEST [facility] Final Result * (ABNORMAL) POCT Urinalysis Dipstick, Manual, non-interfaced (09/09/2024 1:42 PM EST) Color, UA Dark Yellow Yellow Clarity, UA Clear Clear Glucose, UA Negative Negative mg/dL Bilirubin, UA Negative Negative Ketones, UA Trace(A) Negative mg/dL Spec Grav, UA 1.015 1.005 - 1.030 Blood, UA Moderate(A) Negative Comment:has period pH, UA 8.5 5.0 - 8.5 Protein, UA Negative Negative mg/dL Urobilinogen, UA 0.2 0.2 - 1.0 E.U. /dL mg/dL Nitrite, UA Negative Negative Leukocytes, UA Negative Negative Urine 09/09/2024 1:42 PM EST Destiny [facility] POINT OF CARE TEST [facility] Final Result from Last 3 Months Insurance [facility] HMO/POS Care Teams Assistant Director Of Financial Aid Relationship Specialty Start Date End Date No, Referring PCP - General 08/19/23
--- OUTSIDE RECORDS SUMMARY | 2024-11-24 12:34 | XMS_ITS | Clinical Summary ---
Author Organization [facility] Address [address] [place] [address] Care Team Providers Care Pot Firer Name Role Phone Rafael Madera MD Primary Care Provider [phone] Rafael Funk [facility] Unavailable Allergies Active Allergy Reactions Criticality Noted Date Comments Povidone-Iodine Other 12/24/2023 Fish-Derived Products Anaphylaxis High 12/24/2023 Fish containing products [place] Urticarial Rash High 10/28/2023 Throat closure Medications * This document contains information received from the source organization and may not represent a complete record from that organization. EPINEPHrine (EPIPEN) 0.3 MG/0.3ML injection syringeIndicati ons:Fish allergy Inject 0.3 mL (0.3 mg total) into a muscle -. 2 each 1 4 Active Ferrous Sulfate (IRON OR) Take 37 mg by mouth. Active Venlafaxine ER (EFFEXOR-XR) 150 MG 24 hr capsuleIndicati ons:Generalized anxiety disorder Take one capsule (150 mg total) by mouth 1 (one) time each day. 90 capsule 3 4 Active UREA, EMOLLIENT, (CARMOL) 20 % cream Apply topically if needed (Please apply to the callus at the bottom ball of the left 4th toe daily. Use sparing amount.). 85 g 4 07/16/20 25 Active ALBUTEROL-IPRAT ROPIUM (DUO-NEB) 0.5-2.5 (3) MG/3ML nebulizer solutionIndicat ions:Wheezing Take 3 mL by nebulization 4 (four) times a day if needed for wheezing or shortness of breath. 30 each 4 09/05/20 25 Active Albuterol (PROVENTIL HFA;VENTOLIN HFA) 90 mcg/ACT inhalerIndicati ons:Wheezing Inhale two puffs every 4 (four) hours if needed for wheezing or shortness of breath Dispense Generic or Brand Albuterol per preferred payor coverage.. 1 each 4 09/05/20 25 Active guaiFENesin-Cod eine (ROBITUSSIN-AC) 100-10 MG/5ML liquidIndicatio ns:Viral URI with cough Take 5-10 mL by mouth 4 (four) times a day if needed for cough Ok to dispense any generic guaifenesin-code ine available. 240 mL 4 Active traZODone (DESYREL) 50 MG tabletIndicatio ns:Insomnia, unspecified type Take one tablet (50 mg total) by mouth at night if needed for sleep. 90 tablet 3 4 Active Active Problems Problem Noted Date Diagnosed Date Depression with anxiety 11/25/2023 Generalized anxiety disorder 11/13/2023 PTSD (post-traumatic stress disorder) 11/13/2023 Iron deficiency anemia 11/03/2023 H/O gastric sleeve 10/28/2023 Morbid obesity 06/18/2019 Encounters Date Type Department Care Team Description 09/09/2024 Refill [facility] [address] [place] [phone] Pernell Shankar PA Refill Request from Last 3 Months Immunizations Name Administration Dates Next Due Influenza (SEASONAL) - 07/05/2021 Family History Medical History Relation Name Comments SIDS Daughter 2013 2nd child from SIDS at 10 weeks Glaucoma Father b 1962 Hypertension Father b 196 Allergies Mother b 1965 Arthritis knees Mother b 1965 Diabetes Mother b 1965 Gynecological Mother b 1965 fibroids Hypertension Mother b 1965 Cardiovascular disease Other Unspe cified family history of Cardiovascular disease Cancer - Breast Paternal aunt at 34 Cancer - Colon Paternal grandfather Kidney Stones Paternal grandfather No Known or Significant Medical History Sister CAD/PVD - Early Neg Hx Relation Name Status Comments Daughter Father b 1962 Alive Mother b 1965 Alive Other Paternal aunt Paternal grandfather Sister Alive Social History Tobacco Use Types Packs/Day Years Used Date Smoking Tobacco: Never Smokeless Tobacco: Never Tobacco Cessation:Counseling Given: Not Answered Alcohol Use Standard Drinks/Week Comments Never 0 [...] AM EST Sexual Orientation Not on file Last Filed Vital Signs Vital Sign Reading Time Taken Comments Blood Pressure 131/86 07/30/2024 3:13 PM EST Pulse 88 07/30/2024 3:13 PM EST Temperature 36.6 ??C (97.9 ??F) 07/30/2024 3:13 PM ES T Respiratory Rate 20 05/28/2024 1:56 PM EDT Oxygen Saturation 99% 07/30/2024 3:13 PM EST Inhaled Oxygen Concentration - - Weight 98.2 kg (216 lb 6.4 oz) 04/30/2024 9:07 A M EDT Height 170.8 cm (5' 7.25 ) 04/30/2024 9:07 AM ED T Body Mass Index 33.64 04/30/2024 9:07 AM EDT Plan of Treatment Upcoming Encounters Date Type Department Care Team (Latest Contact Info) Description 06/29/2025 3:45 PM EDT CPE - Comprehensive Physical Exam [facility] [address] [place] [phone] Rafael Madera MD [address] [place] [address] Return for Wellness Visit / CompletePhysical Exam in 2024 . Health Maintenance Due Date Last Done Comments DTaP/Tdap/Td (1 - Tdap) 2005 Hep B (1 of 3 - 19+ 3-dose series) 2006 Bariat[facility] Labs (gastric bypass) 11/17/2023 [facility] (gastric sleeve) 11/17/2023 COVID-19 Vaccine (1 - 2023-2 5 season) 2024 Influenza (#1) 2024 07/05/2021 Pap Smear 01/05/2029 01/06/2024, 01/06/2024 Zoster (Shingrix) (1 of 2) 2037 Hepatitis C Screening Completed 10/30/2023 LDL Cholesterol Discontinued 10/30/2023 Physical Discontinued 10/30/2023 HPV Testing Discontinued 01/06/2024 Mammogram/Breast Imaging Discontinued 02/27/2024 Chest Imaging Discontinued 05/28/2024 HPV Vaccine Aged Out No longer eligi ble based on patient's age to complete this topic Hep A Aged Out No longer eligi ble based on patient's age to complete this topic Hib Aged Out No longer eligi ble based on patient's age to complete this topic Meningococcal ACWY Aged Out No longer eligible based on patient's age to complete this topic Pneumococcal Aged Out No longer eligi ble based on patient's age to complete this topic Procedures * Due to [place] [employer] law, this organization might not be sharing negative HIV tests. Procedure Name Priority Date/Time Associated Diagnosis Comments XRAY CHEST, 2 VIEWS, PA & LATERAL FC STAT (All results called to provider) 05/28/2024 2:45 PM EDT Acute cough MAMMOGRAM, DIAGNOSTIC TOMOSYNTHESIS BILATERAL Routine 02/27/2024 2:17 PM EDT Breast thickening THINPREP TIS PAP AND HPV MRNA E6/E7 REFLEX HPV 16,18/45 Routine 01/06/2024 2:37 PM EDT Screening for malignant neoplasm of cervix HEPATITIS C AB WITH REFLEX TO RNA PCR, SERUM Routine 10/30/2023 11:12 AM EST Need for hepatitis C screening test LIPID PANEL WITH REFLEX TO DIRECT LDL Routine 10/30/2023 11:12 AM EST Lipid screening Screening for cardiovascular condition from Last 3 Months or Most Recently Relevant to Health Maintenance Results * Due to [place] state law, this organization might not be sharing negative HIV tests. * XRAY CHEST, 2 VIEWS, PA & LATERAL (05/28/2024 2:45 PM EDT) Anatomical Region Laterality Modality CHEST Computed Radiogr aphy 05/28/2024 2:57 PM EDT Narrative 05/28/2024 2:57 PM EDT Patient History: cough x 2 weeks, worsening x 24 hours CONTRAST: 2 view chest x-ray. Comparison: None Findings: No consolidation or effusion. Cardiac and mediastinal contours are unremarkable. Bones unremarkable. Impression: 1. No acute pulmonary disease. Procedure Note Kiran Rolle MD - 05/28/2024 Patient History: cough x 2 weeks, worsening x 24 hours CONTRAST: 2 view chest x-ray. Comparison: None Findings: No consolidation or effusion. Cardiac and mediastinal contours are unremarkable. Bones unremarkable. Impression: 1. No acute pulmonary disease. us Valeria Krause PA IMG XRAY NO CONTRAST ORDERABLE S Final Result * MAMMOGRAM, DIAGNOSTIC TOMOSYNTHESIS BILATERAL (02/27/2024 2:17 PM EDT) Anatomical Region Laterality Modality BREAST Bilateral Mammography Impressions 02/27/2024 2:52 PM EDT : No mammographic signs of malignancy Further evaluation of areas of bilateral breast thickening should based on the clinical findings. BIRADS: ??- 1 - Negative (overall) RECOMMENDATION: ?- Routine Screening Mammogram at Age 40. A result letter has been sent to the patient. Narrative 02/27/2024 2:52 PM EDT EXAMINATION: MAMMOGRAM, DIAGNOSTIC TOMOSYNTHESIS BILATERAL US BREAST - BILAT HISTORY: Left breast thickening at 2:00 and 9:00-12:00 in right breast , right breast thickening at 3:00, 9:00 and 11:00 felt by referring clinician. ??Family history of breast cancer in paternal aunt at age 34. TECHNIQUE: Standard Bilateral, 2D digital mammography and tomosynthesis were obtained and interpreted with CAD COMPARISON: None. ??Baseline study. BREAST COMPOSITION: There are scattered areas of fibroglandular density. FINDINGS: There are no suspicious masses, suspicious calcifications or areas of unexplained architectural distortion. ??Subsequent bilateral breast ultrasound was performed. Targeted real-time and static ultrasound images of both breasts were obtained in the areas of thickening reported by clinician. ??At 3:00, 9:00 and 11:00 in the right breast, no sonographic abnormality is demonstrated. At 2:00 and 9:00-12:00 in the left breast, no sonographic abnormality is demonstrated. Tracee Almonte NP IMG MAMMO ORDERABLES Final Re sult * THINPREP TIS PAP AND HPV MRNA E6/E7 REFLEX HPV 16,18/45 (01/06/2024 2:37 PM EDT) Clinical information None given [facility] Date last menstrual period 12/19/2023 [facility] Date of previous PAP smear NONE GIVEN [facility] Date of previous biopsy NONE GIVEN [facility] Specimen source (Cvx/Vag) None given [facility] Statement of Adequacy (Cvx/Vag) Satisfactory for evaluation. Endocervical/caruso sformation zone component absent. [facility] Cytology, Pap Smear Cytology Results: Negative for intraepithelial lesion or malignancy. [facility] Cytology study comment (Cvx/Vag) This Pap test has been evaluated with computer assisted technology. [facility] Apparel Trimmings Sales Representative (Cvx/Vag) JNA, CT(ASCP) CT screening location: [place] [address] [facility] COMMENT SEE NOTE [facility] Comment: EXPLANATORY NOTE: The Pap is a screening test for cervical cancer. It is not a diagnostic test and is subject to false negative and false positive results. It is most reliable when a satisfactory sample, regularly obtained, is submitted with relevant clinical findings and history, and when the Pap result is evaluated along with historic and current clinical information. HPV MRNA E6/E7 Not Detected Not Detected [facility] Comment: Methodology: Web Offset Press Feeder-Mediated Amplification This assay detects E6/E7 viral messenger RNA (mRNA) from 14 high-risk HPV types (16,18,31,33,35,39,45,51,52,56,58,59,66,68). Cervical sources are required for HPV testing. If a vaginal source from a patient who has had a total hysterectomy with removal of cervix was submitted, please contact the testing laboratory for alternative testing options. For additional information, please refer to http://Prismatic.Innoverne/faq/TII143d4 (This link if provided for information/ educational purposes only.) 01/06/2024 2:37 PM EDT 01/07/2024 5:12 AM EDT Narrative Resulting Agency Comment [id number] Tracee Almonte NP PATHOLOGY-INTERFACED Final Re sult Performing Organization Address [facility] Co de Phone Number [facility] [address] [place] [address] * HEPATITIS C AB WITH REFLEX TO RNA PCR, SERUM (10/30/2023 11:12 AM EST) Hepatitis C virus Ab NON-REACT GIGI NON-REACT GIGI [facility] Comment: HCV antibody was non-reactive. There is no laboratory evidence of HCV infection. In most cases, no further action is required. However, if recent HCV exposure is suspected, a test for HCV RNA (test code 65791) is suggested. For additional information please refer to http://Prismatic.Innoverne/faq/IGR84q0 (This link is being provided for informational/ educational purposes only.) 10/30/2023 11:1 2 AM EST 10/30/2023 1:19 PM EST Narrative Resulting Agency Comment [id number] Rafael Madera MD LABORATORY Final Res ult Performing Organization Address [facility] Co de Phone Number [facility] [address] [place] [address] * LIPID PANEL WITH REFLEX TO DIRECT [...] LDL-C. Marlon MEJIA et al. KRYS. 2013;310(19): 9461-0406 (http://education.Tasqe.Orchestra Networks/faq/YCO049) CHOL/HDL Ratio 2.4 <5.0 (calc) [facility] Cholesterol Non-HDL 82 <130 mg/dL (calc) [facility] Comment: For patients with diabetes plus 1 major ASCVD risk factor, treating to a non-HDL-C goal of <100 mg/dL (LDL-C of <70 mg/dL) is considered a therapeutic option. 10/30/2023 11:1 2 AM EST 10/30/2023 1:19 PM EST Narrative Resulting Agency Comment [id number] Rafael Madera MD LABORATORY Final Res ult [facility] [address] [place] [address] from Last 3 Months or Most Recently Relevant to Health Maintenance Insurance [employer] FEE FOR SERVICE PPO Care Teams Pot Firer Relationship Specialty Start Date End Date Rafael Madera MD [address] [place] [id number] PCP - General Family Medicine 08/20/23 Rafael Funk, [facility] [address] [place] [phone] Partner 11/10/23
--- OUTSIDE RECORDS SUMMARY | 2024-11-24 12:34 | XMS_ITS | Encounter Summary ---
Author Organization [facility] Address [address] [place] [address] Care Team Providers Care Processing Engineer Name Role Phone Rafael Madera MD Primary Care Provider [phone] Rafael Funk [facility] Unavailable [phone] Encounter Details Date Type Department Care Team ([facility] st Contact Info) Description 03/16/2024 Orders Only [facility] [address] [place] [phone] Leigha Marsh PA [address] [place] [address] Social History Tobacco Use Types Packs/Day Years [...] on file documented as of this encounter Miscellaneous Notes * Result Encounter Note - Leigha Marsh PA - 03/16/2024 7:34 AM EDT Normal labs MCM sent to patient documented in this encounter Plan of Treatment Upcoming Encounters Date Type Department Care Team (Latest Contact Info) Description 06/29/2025 3:45 PM EDT CPE - Comprehensive Physical Exam [facility] [address] [place] [phone] Rafael Madera MD [address] [place] [address] Return for Wellness Visit / CompletePhysical Exam in 2024 . documented as of this encounter Procedures * Due to [facility] law, this organization might not be sharing negative HIV tests. Procedure Name Priority Date/Time Associated Diagnosis Comments FSH AND LH Routine 03/16/2024 7:34 AM EDT Menometrorrhagia Dysmenorrhea THYROID STIMULATING HORMONE (TSH) WITH FREE T4 REFLEX, SERUM Routine 03/16/2024 7:34 AM EDT Menometrorrhagia Dysmenorrhea PROLACTIN Routine 03/16/2024 7:34 AM EDT Menometrorrhagia Dysmenorrhea documented in this encounter Results * Due to [employer] law, this organization might not be sharing negative HIV tests. * THYROID STIMULATING HORMONE (TSH) WITH FREE T4 REFLEX, SERUM (03/16/2024 7:34 AM EDT) TSH 2.96 mIU/L [facility] Comment: ?Reference Range ?> or = 20 Years ??0.40-4.50 ? Ranges ?First trimester ?0.26-2.66 ?Second trimester ?? 0.55-2.73 ?Third trimester ?0.43-2.91 03/16/2024 7:34 AM EDT 03/16/2024 10:42 PM EDT Narrative Resulting Agency Comment [id number] us Leigha [facility] Final Res ult Performing Organization Address [facility] Co de Phone Number [facility] [address] [place] [address] * FSH AND LH (03/16/2024 7:34 AM EDT) FSH 6.3 mIU/mL [facility] Comment: ?Reference Range ? Follicular Phase ? 2.5-10.2 ? Mid-cycle Peak ? 3.1-17.7 ? Luteal Phase ? 1.5- 9.1 ? Postmenopausal ? 23.0-116.3 ? Luteinizing Hormone (LH) 4.6 mIU/mL [facility] Comment: ? Reference Range ? Follicular Phase ??1.9-12.5 ? Mid-Cycle Peak ?8.7-76.3 ? Luteal Phase ?0.5-16.9 ? Postmenopausal ?10.0-54.7 03/16/2024 7:34 AM EDT 03/16/2024 10:42 PM EDT Narrative Resulting Agency Comment [id number] us Leigha [facility] Final Res ult Performing Organization Address [facility] de Phone Number [facility] [address] [place] [address] * PROLACTIN (03/16/2024 7:34 AM EDT) Prolactin 12.3 ng/mL [facility] Comment: ?Reference Range Females ?Non- ?3.0-30.0 ? 10.0-209.0 ?Postmenopausal ?2.0-20.0 03/16/2024 7:34 AM EDT 03/16/2024 10:42 PM EDT Narrative Resulting Agency Comment [id number] us Leigha Marsh PA LAB SAME DAY RESULT Final Result [facility] [address] [place] [address] documented in this encounter Visit Diagnoses Diagnosis Menometrorrhagia Excessive or frequent menstruation Dysmenorrhea documented in this encounter Care Teams Processing Engineer Relationship Specialty Start Date End Date Rafael Madera MD [address] [place] [address] PCP - General Family Medicine 08/20/23 Rafael Funk, [facility] [address] [place] [address] Partner 11/10/23 documented as of this encounter
--- OUTSIDE RECORDS SUMMARY | 2024-11-24 12:34 | XMS_ITS | Referral Summary ---
Author Organization [facility] Address [address] [place] [address] Care Team Providers Care Patient Liaison Name Role Phone No, Referring Primary Care Provider Unavailabl e Encounters Date Type Department Care Team Description 09/10/2024 Telephone [facility] [address] [facility] Urgent Care Department [address] [place] [phone] Taylor Watson LPN 09/10/2024 Refill [facility] [address] [facility] Urgent Care Department [address] [place] [phone] Joanie Donnelly NP Acute cough 09/10/2024 Telephone [facility] [address] [facility] Urgent Care Department [address] [place] [phone] Cece Lakhani MA Medication Problem 09/09/2024 11:00 AM EST Office Visit [facility] [address] [facility] Urgent Care Department [address] [place] [phone] Destiny Nazario PA Acute cough (Primary Dx); Acute bilateral back pain, unspecified back location; Influenza from Last 3 Months Allergies Active Allergy Reactions Criticality Noted Date Comments Fish Containing Products Anaphylaxis High 05/05/2015 Fish causes anaphyaxsis during only Povidone-Iodine Other (see comments) 12/24/2023 [place] Oil Rash High 10/28/2023 Throat closure Medications [...] needed for cough. 45 capsule 09/09/2024 Active Social History Tobacco Use Types Packs/Day Years [...] Mass Index - - Plan of Treatment Not on file Procedures * Due to [place] [employer] law, this organization might not be sharing negative HIV tests. Procedure Name Priority Date/Time Associated Diagnosis Comments POCT INFLUENZA A+B ABBOT, NON-INTERFACED Routine 09/09/2024 1:48 PM EST Acute cough POCT URINALYSIS DIPSTICK, NON-INTERFACED Routine 09/09/2024 1:42 PM EST Acute bilateral back pain, unspecified back location from Last 3 Months Results * Due to [place] [employer] law, this organization might not be sharing negative HIV tests. * (ABNORMAL) POCT Influenza A+B Gray, Non-Interfaced (09/09/2024 1:48 PM EST) Internal Positive Control Pass Yes Internal Negative Control Pass Yes Influenza, A Positive(A) Negative Influenza B, Manual Negative Negative Nasopharyngeal Swab 09/09/20 1:48 PM EST Destiny [facility] POINT OF CARE TEST ORDSuki MEDRANO Final Result * (ABNORMAL) POCT Urinalysis [...] Final Result from Last 3 Months Insurance HMO/POS Care Teams Patient Liaison Relationship Specialty Start Date End Date No, Referring PCP - General 08/19/23
--- OUTSIDE RECORDS SUMMARY | 2024-11-24 12:34 | XMS_ITS | Data Portability ---
Author Organization [facility] [employer], svmg_admin Address [address] [place] [id number] Care Team Providers Care Quality Improvement Consultant Name Role Phone REFUGIO WOOD Referring Provider Unavailable ENMA ESPINOSA Primary Care Provider [phone] Assessment Encounter Date Assessment Date Assessment LastModified by Organization Details LastModified Time 07/29/2022 07/29/2022 Initial Nutrition Visit Referring Provider: TAINA Durbin Referral/Reason for visit: BMI 40+ Informant(s): Deana Time visit started: 8:30 am Time visit ended: 9 am Time spent (minutes): 30 ASSESSMENT Medical problems: elevated BP Medications: vitmain D, B12. Anthropometric Height: 67 Weight: 124.01 kg BMI: 42.8 Heaviest was 380#; had bariatric surgery, the sleeve in 2011. Was down to 220#. Lost her aughter 8 years ago to SUID. Became depresseed and regained weight. Has tried keto, IF, etc. to lose, but nothing has worked. Biochemical data, medical tests and procedures Labs: I have reviewed this patient? s labs. Pertinent labs include: low vitamin D. Food/Nutrition- related history Current diet: Food allergies: Usual appetite: sometimes hit or miss - starving or not eating. GI symptoms: none 24 hour recall/usual intake Breakfast: none; normally nothing. Medium or large coffee in the AM (12-16 oz) AM Snack: Lunch: rice, empanadas - sausage. Makes a big salad at work - broccoli, carrots, gabranzo beans, peppers, hummus, chicken. PM Snack: sometimes - might have a banana or almonds or honey roasted peanuts. Dinner at ~5:30 pm: leftovers. Usual: tacos OR pasta with meat sauce OR rice/potatoes, with chicken. OR fish sticks. HS Snack: sometimes - might have a yogurt - chobani or a cheese stick Beverages: not enough water. Brings a water bottle to work - blackberry vitamin water. Coffee in the AM with oat milk + caramel OR just oat milk (From kirt) Fruit intake: daily, sometimes some grapes at work, oranges Vegetable intake: corn, broccoli, spinach, peppers, cauliflower Restaurants/beto e out/fast food: 1x/week - Rw[place]an food OR burgers OR pizza. Social Lives with , 2 children - 11 and 6 Who does the cooking for home? both Who does the grocery shopping for home? + Deana Speed of eating: slow eater. 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 Hours of sleep: doesn't get good sleep. Woke up at 2:30 am, couldn't get back to sleep. Nutrition-focus ed physical findings General: appears well-nourished DIAGNOSIS PES Statement Problem: obesity Etiology: Related to excessive energy intake Signs/symptoms: As evidenced by BMI>30 INTERVENTION Reviewd the 2000 kcal MyPlate plan Increase water intake Decrease sugar-sweetened beverage intake (caramel coffee) Decrease sedentary time Increase intake of whole grains Use food labels Nutrition prescription Estimated energy requirements: ~2000 kcal/day based on [place]. Jeor Estimated protein requirements: ~124 g/day based on 1 g/kg/day Materials/resou rces provided: 2000 kcal MyPlate Plan Patient? s stage of change: preparation Barriers to change: none identified MONITORING AND EVALUATION Food and nutrition related history Nutrition-focus ed physical exam Improvement in BMI Recommendations /patient set goals: 1. Try eating breakfast. Star your day with the protien drink (30 g protein) and some fruit. 2. Try to drink more water. Aim for ~64 oz per day. 3. Limit sugar in your diet. 4. Try to work on the sleep . Follow-up: 3 months arian Not available 07/29/2022 09:39:16 Plan of Treatment Reminders Order Date Submit Date Provider Last Modified By Organization Details Last Modified Time Details Appointments None recorded. Lab lipid panel w/ direct LDL, serum 2021 [facility], [address], [place], [address], 13:06:56 vitamin D, 25-hydroxy, total, serum 2021 [facility], [address], [place], [address], 13:06:57 TSH, ultra-sensi tive, serum 2021 [facility], [address], [address], [place], [address], 13:06:58 CMP, serum or plasma 2021 [facility], [address], [address], [place], [address], 13:06:55 CBC 2021 [facility], [address], [address], [place], [address], 13:06:56 HbA1c (hemoglobin A1c), blood 2021 [facility], [address], [address], [place], [address], 13:06:57 Referral gynecologis t referral - would like iud placement 2021 [email or web address] Not available 08:21:54 nutritionis t/dietitian referral - need nutrition counseling [address], [address], [address], [place], [address], 09:42:53 Procedures None recorded. Surgeries None recorded. Imaging None recorded. Medication Orders None recorded. Patient TargetsNo targets recorded. Patient Instructions Encounter Date Encounter Id Patient Instructions Last Modified By Organization Details Last Modified Time 06/04/2022 [id number] anemia: care instructions [email or web address] Not available 06/04/2022 15:29:00 body mass index: care instructions Not available 06/04/2022 15:29:00 learning about healthy weight [email or web address] Not available 06/04/2022 15:29:00 07/29/2022 [id number] body mass index: care instructions [email or web address] Not available 07/29/2022 09:42:04 learning about healthy weight [email or web address] Not available 07/29/2022 09:42:04 Reason for Referral Print Journalist Referral for Gy necologic examination would like iud placement Referring Physician: Enma Espinosa [facility], Encounter Date: 06/04/2022 Relationship Mgr/dietitian Refer ral for Body mass index 40+ - severely obese need nutrition counseling Referring Physician: Enma Espinosa [facility], Encounter Date: 06/04/2022 Results Created Date Observation Date Name Description Value Unit Range Abnormal Flag Note LastModifiedBy Organization Detail LastModifiedTime 06/04/20 22 06/05/2022 COMP. METAB OLIC PANEL (14) glucose 86 mg/dL 65-99 Eff ectiv e Septe mber 2021 Gluco se refer ence* * inter dom will be menard ing to: 70 - 99 Not Available [facility] ([facility]) [address] [place], [address], 06/05/2022 13:06:54 06/04/20 22 06/05/2022 COMP. METAB OLIC PANEL (14) BUN 15 mg/dL 6-20 Not Available [facility] ([facility]) [address] [place], [address], 06/05/2022 13:06:54 06/04/20 22 06/05/2022 COMP. METAB OLIC PANEL (14) creatinine 0.63 mg/dL 0.57-1 .00 Not Available [facility] ([facility]) [address] [place], [address], 06/05/2022 13:06:54 06/04/20 22 06/05/2022 COMP. METAB OLIC PANEL (14) eGFR 119 mL/mi n/1.7 3 >59 Not Available [facility] ([facility]) [address] [facility], [place], [address], 06/05/2022 13:06:54 06/04/20 22 06/05/2022 COMP. METAB OLIC PANEL (14) BUN/creatini ne ratio 24 9-23 above high normal Not Available [facility] ([facility]) [address] [facility] [place], [address], 06/05/2022 13:06:54 06/04/20 22 06/05/2022 COMP. METAB OLIC PANEL (14) sodium 137 mmol/ L 134-14 4 Not Available [facility] ([facility]) [address] [facility], [place], [address], 06/05/2022 13:06:54 06/04/20 22 06/05/2022 COMP. METAB OLIC PANEL (14) potassium 4.2 mmol/ L 3.5-5. 2 Not Available [facility] ([facility]) [address] [facility], [place], [address], 06/05/2022 13:06:54 06/04/20 22 06/05/2022 COMP. METAB OLIC PANEL (14) chloride 101 mmol/ L 96-106 Not Available [facility] ([facility]) [address] [facility] [place], [address], 06/05/2022 13:06:54 06/04/20 22 06/05/2022 COMP. METAB OLIC PANEL (14) carbon dioxide, total 24 mmol/ L 20-29 Not Available [facility] ([facility]) [address] [facility] [place], [address], 06/05/2022 13:06:54 06/04/20 22 06/05/2022 COMP. METAB OLIC PANEL (14) calcium 9.2 mg/dL 8.7-10 .2 Not Available [facility] ([facility]) [address] [facility], [place], [address], 06/05/2022 13:06:54 06/04/20 22 06/05/2022 COMP. METAB OLIC PANEL (14) protein, total 7.0 g/dL 6.0-8. 5 Not Available [facility] ([facility]) [address] [facility], [place], [address], 06/05/2022 13:06:54 06/04/20 22 06/05/2022 COMP. METAB OLIC PANEL (14) albumin 4.1 g/dL 3.8-4. 8 Not Available [facility] ([facility]) [address] [facility], [place], [address], 06/05/2022 13:06:54 06/04/20 22 06/05/2022 COMP. METAB OLIC PANEL (14) globulin, total 2.9 g/dL 1.5-4. 5 Not Available [facility] ([facility]) [address] [facility], [place], [address], 06/05/2022 13:06:54 06/04/20 22 06/05/2022 COMP. METAB OLIC PANEL (14) A/G ratio 1.4 1.2-2. 2 Not Available [facility] ([facility]) [address] [facility], [place], [address], 06/05/2022 13:06:54 06/04/20 22 06/05/2022 COMP. METAB OLIC PANEL (14) bilirubin, total 0.3 mg/dL 0.0-1. 2 Not Available [facility] ([facility]) [address] [facility], [place], [address], 06/05/2022 13:06:54 06/04/20 22 06/05/2022 COMP. METAB OLIC PANEL (14) alkaline phosphatase 62 IU/L 44-121 Not Available [facility]) [address] [place], [address], 06/05/2022 13:06:54 06/04/20 22 06/05/2022 COMP. METAB OLIC PANEL (14) AST (SGOT) 18 IU/L 0-40 Not Available [facility] ([facility]) [address] [place], [address], 06/05/2022 13:06:54 06/04/20 22 06/05/2022 COMP. METAB OLIC PANEL (14) ALT (SGPT) 14 IU/L 0-32 Not Available [facility] ([facility]) [address] [facility], [place], [address], 06/05/2022 13:06:54 06/04/20 22 06/05/2022 CBC, PLATE LET, NO DIFFE RENTI AL WBC 6.5 x10e3 /uL 3.4-10 .8 Not Available [facility] ([facility]) [address] [place], [address], 06/05/2022 13:06:55 06/04/20 22 06/05/2022 CBC, PLATE LET, NO DIFFE RENTI AL RBC 4.39 x10e6 /uL 3.77-5 .28 Not Available [facility] ([facility]) [address] [place], [address], 06/05/2022 13:06:55 06/04/20 22 06/05/2022 CBC, PLATE LET, NO DIFFE RENTI AL hemoglobin 11.2 g/dL 11.1-1 5.9 Not Available [facility] ([facility]) [address] [place], [address], 06/05/2022 13:06:55 06/04/20 22 06/05/2022 CBC, PLATE LET, NO DIFFE RENTI AL hematocrit 35.9 % 34.0-4 6.6 Not Available [facility] ([facility]) [address] [place], [address], 06/05/2022 13:06:55 06/04/20 22 06/05/2022 CBC, PLATE LET, NO DIFFE RENTI AL MCV 82 fL 79-97 Not Available [facility] ([facility]) [address] [place], [address], 06/05/2022 13:06:55 06/04/20 22 06/05/2022 CBC, PLATE LET, NO DIFFE RENTI AL MCH 25.5 pg 26.6-3 3.0 below low normal Not Available [facility] ([facility]) [address] [facility], [place], [address], 06/05/2022 13:06:55 06/04/20 22 06/05/2022 CBC, PLATE LET, NO DIFFE RENTI AL MCHC 31.2 g/dL 31.5-3 5.7 below low normal Not Available [facility] ([facility]) [address] [place], [address], 06/05/2022 13:06:55 06/04/20 22 06/05/2022 CBC, PLATE LET, NO DIFFE RENTI AL RDW 13.1 % 11.7-1 5.4 Not Available [facility] ([facility]) [address] [place], [address], 06/05/2022 13:06:55 06/04/20 22 06/05/2022 CBC, PLATE LET, NO DIFFE RENTI AL platelets 247 x10e3 /uL 150-45 0 Not Available [facility] ([facility]) [address] [place], [address], 06/05/2022 13:06:55 06/04/20 22 06/05/2022 CBC, PLATE LET, NO DIFFE RENTI AL NRBC FORMING FIXER Not Available [facility] ([facility]) [address] [facility], [place], [address], 06/05/2022 13:06:55 06/04/20 22 06/05/2022 LP+LD L DIREC T cholesterol, total 170 mg/dL 100-19 9 Not Available [facility] ([facility]) [address] [place], [address], 06/05/2022 13:06:56 06/04/20 22 06/05/2022 LP+LD L DIREC T triglyceride s 89 mg/dL 0-149 Not Available [facility] ([facility]) [address] [place], [address], 06/05/2022 13:06:56 06/04/20 22 06/05/2022 LP+LD L DIREC T HDL cholesterol 63 mg/dL >39 Not Available [facility] ([facility]) [address] [place], [address], 06/05/2022 13:06:56 06/04/20 22 06/05/2022 LP+LD L DIREC T VLDL cholesterol alexander 16 mg/dL 5-40 Not Available [facility] ([facility]) [address] [place], [address], 06/05/2022 13:06:56 06/04/20 22 06/05/2022 LP+LD L DIREC T LDL chol calc ([facility]) 91 mg/dL 0-99 Not Available [facility] ([facility]) [address] [place], [address], 06/05/2022 13:06:56 06/04/20 22 06/05/2022 LP+LD L DIREC T comment: FORMING FIXER Not Available [facility] ([facility]) [address] [place], [address], 06/05/2022 13:06:56 06/04/20 22 06/05/2022 LP+LD L DIREC T LDL chol. (direct) 94 mg/dL 0-99 Not Available [facility] ([facility]) [address] [facility], [place], [address], 06/05/2022 13:06:56 06/04/20 22 06/05/2022 HEMOG LOBIN A1C hemoglobin A1C 5.6 % 4.8-5. 6 Predi abete s: 5.7 - 6.4 Diabe marsha: >6.4 Glyce maral contr ol for adult s with diabe marsha: <7.0 Not Available [facility] ([facility]) [address] [facility], [place], [address], 06/05/2022 13:06:57 06/04/20 22 06/05/2022 VITAM IN D, 25-HY DROXY vitamin D, 25-hydroxy 23.3 NG/mL 30.0-1 00.0 below low normal Vitam in D defic iency has been defin ed by the Insti tute of Medic ine and an Endoc rine Socie ty pract ice guide line as a level of serum 25-OH vitam in D less than 20 ng/mL (1,2) . The Endoc rine Socie ty went on to furth er defin e vitam in D insuf ficie ncy as a level betwe en 21 and 29 ng/mL (2). 1. IOM (Inst itute of Medic ine). 2009. Dieta ry refer ence elder es for calci um and D. Mayi barnes [place]: The Natio [facility] Acade [facility] Press . 2. Raj gerber MF, Mode frye [place], Arti off-F errar i SAUNDERS, et al. Evalu ation , treat ment, and preve ntion of vitam in D defic iency : an Endoc rine Socie ty clini alexander pract ice guide line. JCEM. 2010; 96(7) :1911 -30. Not Available [facility] ([facility]) [address] [facility], [place], [address], 06/05/2022 13:06:57 06/04/20 22 06/05/2022 THYRO ID CASCA DE PROFI LE TSH 1.770 uIU/m L 0.450- 4.500 No appar ent thyro id disor jose. Addit ional testi ng not indic ated. In rare insta nces, Secon ashkan Hypot hyroi dism as well as Subcl inica l Hypot hyroi dism have been repor deven in some patie nts with katie l TSH value s. Not Available [facility] ([facility]) [address] [facility], [place], [address], 06/05/2022 13:06:58 06/04/20 22 06/08/2022 THYRO XINE (T4) FREE, DIREC T T4,free(dire ct) 1.04 NG/dL 0.82-1 .77 Not Available [facility] ([facility]) [address] [facility], [place], [address], 06/08/2022 04:06:13 06/04/20 22 06/07/2022 WRMARIE EN AUTHO RIZAT ION written authorizatio n Lara Alanis en Autho rizat ion Recei shreya. Autho rizat ion recei shreya from Nelson Harrison 06-07 Logge d by Nelson Harrison Not Available [facility] ([facility]) [address] [facility], [place], [address], 06/08/2022 04:06:14 Result Notes None recorded. Problems Name Problem SNOMED Code Status Onset Date Resolution Date Notes Provider Name and Address Organization Details Recorded Time Body mass index 40+ - severely obese 859819860 Active 2021 FRANCO Carrasco [address] [place] [address], [id number], [facility] 15:13:25 Increased blood pressure 36280409 Active 2021 FRANCO Carrasco [address] [place], [address], [facility] 2 15:16:20 Anemia 123776298 Active 2021 Enma VyasTAINA [facility] [address] [place] [address], 6, [facility] 2 15:16:27 Mixed anxiety and depressiv e disorder 073071807 Active 2021 Enma VyasTAINA [facility] [address] [place] [address], 6, [facility] 2 15:16:34 Eczema 32158581 Active 2021 Enma VyasTAINA [facility] [address] [place] [address], , [facility] 2 15:16:42 Pain of left knee joint 266500093816 107 Active 2021 Enma VyasTAINA [facility] [address] [place] [address], , [facility] 2 16:23:08 Sleep apnea 76836090 Active 2021 [facility] d [facility]; [facility] 11:49:39 Vitamin D deficienc y 84012211 Active 2021 Abstracte d from [facility]; [facility] 2 11:49:50 Lumbar radiculop athy 998316049 Active 2021 Abstracte d from [facility]; [facility] 2 11:51:14 Problem Notes Documentation Provider Name and Address Organization Details Recorded Time Relationship Mgr/dietitian Consu Note : [facility] ? ? [address] [facility] [place] [id number], Sophia (id #[id number], : 1985) Documents sent via fax will include the following message: This fax may contain sensitive and confidential personal health information that is being sent for the sole use of the intended recipient. Unintended recipients are directed to securely destroy any materials received. You are hereby notified that the unauthorized disclosure or other unlawful use of this fax or any personal health information is prohibited. To the extent patient information contained in this fax is subject to 42 CFR Part 2, this regulation prohibits unauthorized disclosure of these records. If you received this fax in error, please visit [email or web address] to notify the sender and confirm that the information will be destroyed. If you do not have internet access, please call to notify the sender and confirm that the information will be destroyed. Thank you for your attention and cooperation. [ID:[id number]] Date: 07/29/2022 FRANCO Durbin [address] [place] [address] Corey Qu[place], [id number] RE: Deana Salazar 1985 Dear Colleague: I had the pleasure of seeing your patient, Deana Salazar, in my office on 07/29/2022. I have included my evaluation and plan below for your review. I will keep you updated on the further progress of the treatment. Sincerely yours, Electronically Signed by: ALIA KIRKLAND RD ALIA KIRKLAND RD [facility]. Page Break Assessment/P asael:Initial Nutrition Visit Referring Provider: Lidia Durbin/Reason for visit: BMI 40+Informant(s): Marcelle visit started: 8:30 amTime visit ended: 9 amTime spent (minutes): 30 ASSESSMENT Medical problems: elevated BP Medications: vitmain D, B12. AnthropometricHeight: 67 Weight: 124.01 kgBMI: 42.8 Heaviest was 380#; had bariatric surgery, the sleeve in 2011. Was down to 220#. Lost her aughter 8 years ago to SUID. Became depresseed and regained weight. Has tried keto, IF, etc. to lose, but nothing has worked. Biochemical data, medical tests and proceduresLabs: I have reviewed this patient? s labs. Pertinent labs include: low vitamin D. Food/Nutrition-related historyCurrent diet:Food allergies: Usual appetite: sometimes hit or miss - starving or not eating.GI symptoms: none 24 hour recall/usual intakeBreakfast: none; normally nothing. Medium or large coffee in the AM (12-16 oz)AM Snack:Lunch: rice, empanadas - sausage. Makes a big salad at work - broccoli, carrots, gabranzo beans, peppers, hummus, chicken.PM Snack: sometimes - might have a banana or almonds or honey roasted peanuts.Dinner at ~5:30 pm: leftovers. Usual: tacos OR pasta with meat sauce OR rice/potatoes, with chicken. OR fish sticks.HS Snack: sometimes - might have a yogurt - chobani or a cheese stick Beverages: not enough water. Brings a water bottle to work - blackberry vitamin water. Coffee in the AM with oat milk + caramel OR just oat milk (From kirt)Fruit intake: daily, sometimes some grapes at work, orangesVegetable intake: corn, broccoli, spinach, peppers, cauliflowerRestaurants/take out/fast food: 1x/week - [place] food OR burgers OR pizza. SocialLives with , 2 children - 11 and 6Who does the cooking for home? bothWho does the grocery shopping for home? + SophiaSpeed of eating: slow eater. 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 Woke up at 2:30 am, couldn't get back to sleep. Nutrition-focused physical findingsGeneral: appears well-nourished DIAGNOSIS PES StatementProblem: obesityEtiology: Related to excessive energy intakeSigns/symptoms: As evidenced by BMI>30 INTERVENTION Reviewd the 2000 kcal MyPlate planIncrease water intakeDecrease sugar-sweetened beverage intake (caramel coffee)Decrease sedentary timeIncrease intake of whole grainsUse food labels Nutrition prescriptionEstimated energy requirements: ~2000 kcal/day based on [place]-St. JeorEstimated protein requirements: ~124 g/day based on 1 g/kg/day Materials/resources provided: 2000 kcal MyPlate Plan Patient? s stage of change: preparationBarriers to change: none identified MONITORING AND EVALUATION Food and nutrition related historyNutrition-focused physical examImprovement in BMI Recommendations/patient set goals:1. Try eating breakfast. Star your day with the protien drink (30 g protein) and some fruit.2. Try to drink more water. Aim for ~64 oz per day.3. Limit sugar in your diet.4. Try to work on the sleep . Follow-up: 3 months 1. Body mass index 40+ - severely [id number]: Body mass index [BMI] 40.0-44.9, adult BODY MASS INDEX: CARE INSTRUCTIONS LEARNING ABOUT HEALTHY WEIGHT FRANCO Carrasco [address] [place] [address], [id number], [facility] 07/29/2022 11:07:26 Procedures Surgical History Date Name Laterality Status Provider Name and Address Organization Details Recorded Time laparoscopic sleeve gastrectomy completed Shania [facility] 06/04/2022 15:06:06 Section completed Shania Acevedo [facility] 06/04/2022 15:06:21 Gallbladder Surgery completed Shania Acevedo [facility] 06/04/2022 15:06:47 procedure on foot completed Elmo espinosa [facility] 06/04/2022 15:09:53 Imaging Results None recorded. Procedure Notes None recorded. Medical Equipment None Reported. Allergies Allergen ID Allergen Name Allergen Category Reaction Reaction Severity Criticality Documentation Date Start Date Code Code System Note Provider Name and Address Organization Details Recorded Time [id number] povidone- iodine medicatio n Not available Not available Not available 07/03/2022 6185 RxNorm MANDO Palomo [facility] 2 11:50:07 635643 salmon oil food,medi cation Not available Not available Not available 07/03/2022 56519 RxNorm MANDO Palomo [facility] 2 11:50:13 263310 soap medicatio n Not available Not available Not available 07/03/2022 70400 UNK Tari Reed [facility] 2 11:50:18 Medications Name Sig Start Date Stop Date Status Note LastModified by Organization Details LastModified Time thiamine HCl (vitamin B1) 100 mg tablet TAKE 1 TABLET BY MOUTH EVERY DAY active Not Available Not Available No t Available ferrous sulfate 325 mg (65 mg iron) tablet TAKE 1 TABLET BY MOUTH EVERY DAY 06/04 completed Not Available Not Available Not Available omeprazole 20 mg capsule,del ayed release TAKE 1 CAPSULE BY MOUTH TWICE A DAY active Not Available Not Available No t Available ergocalcife rol (vitamin D2) 1,250 mcg (50,000 unit) capsule TAKE 1 CAPSULE EVERY WEEK BY ORAL ROUTE. active Not Available Not Available No t Available Vitamin D3 25 mcg (1,000 unit) capsule TAKE 1 CAPSULE BY MOUTH EVERY DAY active Not Available Not Available No t Available Vitron-C 65 mg iron-125 mg tablet,guicho yed release TAKE 1 TABLET BY MOUTH EVERYDAY AT BEDTIME active Not Available Not Available No t Available Vitals Date Recorded Body height Body mass index (BMI) Body weight Body temperature Heart rate Oxygen saturation Oxygen saturation in Arterial blood by Pulse oximetry Pain severity - 0-10 verbal numeric rating [Score] - Reported Systolic blood pressure Diastolic blood pressure Provider Name and Address Organization Details Last Updated DateTime 2 170.18 cm 43.4 kg/m2 442831. 09 g 98 [degF] 70 /min 98 % 98 % 5 182 mm[Hg] 81 mm[Hg] Shania Acevedo [facility] 2 15:01:33 Date Recorded Systolic blood pressure Diastolic blood pressure Provider Name and Address Organization Details Last Updated DateTime 06/04/2022 142 mm[Hg] 89 mm[Hg] TAINA Carrasco-C [address] [place], [address], [facility] 06/04/2022 15:31:49 Date Recorded Body height Body temperature Heart rate Respiratory rate Oxygen saturation Oxygen saturation in Arterial blood by Pulse oximetry Systolic blood pressure Diastolic blood pressure Systolic blood pressure Diastolic blood pressure Provider Name and Address Organization Details Last Updated DateTime 170.18 cm 97.8 [degF] 76 /min 16 /min 98 % 98 % 130 mm[Hg] 78 mm[Hg] 126 mm[Hg] 76 mm[Hg] Tatyana Cooney [facility] 13:38:18 Date Recorded Body height Body mass index (BMI) Body weight Provider Name and Address Organization Details Last Updated DateTime 07/29/2022 170.18 cm 42.8 kg/m2 891421.15 g ALIA KIRKLAND, RD [address] [place], [address] 07/29/2022 08:28:30 Social History Question Answer Notes LastModified by Organizat ion Details LastModified Time Tobacco Smoking Status Never Smoker Shania buchanan, [facility] 06/04/2022 15:05:03 Do You Have An Advance Directive? No [email or web address] Information not available 06/04/2022 What Is Your Level Of Alcohol Consumption? Occasional [email or web address] Information not available 06/04/2022 Are You Blind Or Do You Have Difficulty Seeing? No Information not available 06/04/2022 Is Blood Transfusion Acceptable In An Emergency? Yes [email or web address] Information not available 06/04/2022 What Is Your Level Of Caffeine Consumption? Moderate Information not available 06/04/2022 Are You Currently Employed? Yes [email or web address] Information not available 06/04/2022 Are You Deaf Or Do You Have Serious Difficulty Hearing? No Information not available 06/04/2022 What Type Of Diet Are You Following? REGULAR [email or web address] Information not available 06/04/2022 Which Illicit Or Recreational Drugs Have You Used? 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 Right [email or web address] Information not available 06/04/2022 How Many Years Have You Used Illicit Or Recreational Drugs? 4 [email or web address] Information not available 06/04/2022 What Was The Date Of Your Most Recent Tobacco Screening? 06/04/2022 [email or web address] Information not available 07/29/2022 Have You Ever Been Counseled For Unhealthy Alcohol Use? No [email or web address] Information not available 07/29/2022 Do You Have Any Pets? Yes [email or web address] Information not available 06/04/2022 What Is Your Relationship Status? 2 Children Information not available 06/04/2022 Do You Feel Stressed (tense, Restless, Nervous, Or Anxious, Or Unable To Sleep At Night)? [id number] [email or web address] Information not available 06/04/2022 Do You Use Any Illicit Or Recreational Drugs? Yes Information not available 06/04/2022 Has Tobacco Cessation Counseling Been Provided? No [email or web address] Information not available 07/29/2022 Do You Or Have You Ever Used Any Other Forms Of Tobacco Or Nicotine? No [email or web address] Information not available 06/04/2022 How Many Days In The Past Year Have You Consumed 4 Or More Drinks? 5 [email or web address] Information not available 06/04/2022 Sex: Unknown Functional Status Question Answer Note LastModified by Organization D etails LastModified Time Are you able to care for yourself? Yes [email or web address] Information not available 06/04/2022 What is your exercise level? Moderate [email or web address] Information not available 06/04/2022 Mental Status None recorded. Family History Relationship Description Onset Age of this Age Resolved Age Notes LastModified by Organization Details LastModified Time Mother Diabetes mellitus [email or web address] Not available 06/04 15:02:40 Mother Kidney disease [email or web address] Not available 06/04 15:02:47 Father Glaucoma [email or web address] Not availab le 06/04/2022 15:02:53 Maternal Grandfather Family history of malignant neoplasm [email or web address] Not available 06/04 15:03:16 Maternal Grandfather Heart disease [email or web address] Not available 06/04 15:03:30 Paternal Grandfather Family history of malignant neoplasm Not available 06/04 15:03:16 Paternal Grandfather Heart disease [email or web address] Not available 06/04 15:03:30 Maternal Aunt Family history of malignant neoplasm [email or web address] Not available 06/04 15:03:47 Maternal Aunt Obesity [email or web address] Not a vailable 06/04/2022 15:04:02 Medical History Condition Response Gout N Seizure Disorder N Eye Problems (Glaucoma, Retinopathy, Mac ular Degeneration) N High Blood Pressure (Hypertension) N Back/Neck Pain N Depression Y Lung Disease N Kidney Disease/Stones N High Cholesterol (Hyperlipidemia) N Sickle Cell Anemia N Headaches/Migraines Y Memory Loss (Dementia) N Mental Illness (Bi-Polar Disorder, Schiz ophrenia) N Hearing Loss N Arthritis N Foot Problems Y Hernia (Hiatal, Inguinal, Umbilical, Aureliano tral) N Cancer N STI's N Liver Disease/Hepatitis N Diverticulitis (Inflammation of the cecilio l) N Endometriosis N Implantable Pacemaker/Defibrillator/AICD N Aortic Aneurysm N Arthritis Rheumatoid N Bleeding Problems N Organ Transplant N Syncope or Passing Out N Fibromyalgia N Autoimmune Disease N HIV N Gallbladder Disease/Stones Y Anxiety Y Prostate Disorder N Pancreatic Disease N Substance Abuse (Alcohol, Drug) N Parkinson's disease N ADD/ADHD N Gastrointestinal Disease (IBS, Gastritis , Ulcer, Acid Reflux) N Anemia Y Celiac Disease N Multiple Sclerosis N Chronic Venous Insufficiency N Pulmonary Embolism (Blood Clot in the Delmy ng) N Peripheral Vascular Disease (PVD) N Diabetes (Non-Insulin Dependent) N Bladder Problems N Rheumatic Fever N Osteopenia/Osteoporosis N Fibroids N Tuberculosis N BPH N HPV (Human Papillomavirus) N Asthma N Developmental Disorder N COPD (Chronic Obstructive Pulmonary Dise ase) N Sleep Apnea N Other Disease(s): N Chronic Pain Disorder N Thyroid Disease/Disorder N Gynecological History Statement/Question Response Date of LMP 2022 Obstetrics History GPAL:G 0 P 0 0 0 0 Past Encounters Encounter ID Performer Location Encounter Start Date Encounter Closed Date Diagnosis/Indication Diagnosis SNOMED-CT Code Diagnosis ICD10 Code Diagnosis Note [id number] FRANCO Carrasco [facility] [place] [address] 06/04/2022 14:49:57 06/04/2022 16:00:40 Body mass index 40+ - severely obese 261239747 Z68.41 Endocrine/ metabolic screening 817997588 Z13.29 Screening for cardiovascular system disease 019725952 Z13.6 Hyperlipid emia screening 956633426 Z13.220 Diabetes m ellitus screening 216338459 Z13.1 Vitamin D deficiency 347 92399 E55.9 Increased blood pressure 95023303 R03.0 Pt will come back in 2 weeks for nursing bp check 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 Anemia 827258651 D64.9 Will check labs Gynecologi c examination 02136296 Z01.419 Will send ot clinic cma for IUD Eczema 64248728 B88.[id number] [facility] [address] [address] 07/29/2022 07:58:40 07/29/2022 09:02:10 Body mass index 40+ - severely obese 744842884 Z68.41 Health Concerns Section Related Observation LastModified by Organization Detai ls LastModified Time None Recorded Concern Status LastModified by Organization Details LastModified Time None Recorded Advance Directives Directive N: Payers Encounter Date Sequence Insurance Name Policy Number Policy Echavarria Covered Member ID Echavarria Member ID Guarantor Name 06/04/2022 1 [place] [facility] [id number] [facility] [id number] Deana Salazar 07/29/2022 1 [place] [id number] Deana Zhao [place] [id number] [facility] Notes Date Note Type Note Provider Name and Address Organization Details Recorded Time 06/04/2022 text/html Patient is a 37 y/o female who presents for a new patient visit. Last physical: due Medical hx: BP- 182/81. 142/89 on recheck.Headache- Drinking a lot of fluids, stressed at work. Anemia- Previously was on iron pills. Will check labs today. Anxiety/ dep- PHQ 2. Previously was on celexa. Didn't like how she felt on it, on medical MJ. Mood is stable now on it. D/t loss of daughter to SIDS in 2016. Anniversary coming up. Eczema- Breaks out occasionally. Using cream as needed. 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 Regular, heavy flow, lasting 5 days. No OCP, would like IUD placement Diet-Generally healthy, gets a variety of veggies, lean proteins, fruits, healthy carbs, stays away from fatty/fried foods. Hx of gastric sleeve, exercising using her pelaton, weight watchers. Eating meals a day, protein shakes, salad and chicken,Exercise- WalksEye/Dentist- utd Immunizations:Johnu s? utd- 2 years ago, will get recs Screenings:PAP- 2020 - hpv neg, due in 5 years Mammograms- due @ 42 TAINA Carrasco-C [address] [place] [address], [id number], [facility] - [facility]. 06/04/2022 15:35:09 OBGyn Episode No OBEpisode recorded.
--- OUTSIDE RECORDS SUMMARY | 2024-11-24 12:34 | XMS_ITS | Encounter Summary ---
Author Organization [facility] Address [address] [place] [address] Care Team Providers Care Fluid Dynamicist Name Role Phone Rafael Madera MD Primary Care Provider [phone] Rafael Funk [facility] Unavailable [phone] Reason for Visit * Reason Comments Reschedule Consult TL No Show Billing Concern Encounter Details Date Type Department Care Team ([facility] st Contact Info) Description 08/18/2024 Telephone [facility] DATABASE MARKETING MANAGER [address] [facility] [address] [place] [address] Willy Sparrow MD [address] [place] [address] Reschedule (Consult TL); No Show ; Billing Concern Social History Tobacco Use Types Packs/Day Years [...] as of this encounter Miscellaneous Notes * Telephone Encounter - Jessie Verma - 10/25/2024 11:38 AM EST Outgoing Call Summary Date/Time of Call: 10/25/2024 11:39 AM Reason for Call: Billing concern Outcome: LVM that we need updated insurance before the appointment to avoid cancellation * Telephone Encounter - Kendra Mendoza - 09/09/2024 9:31 AM EST Future Appointments Date Time Provider Department Phone 10/27/24 2:30 PM Willy Sparrow MD [facility] [phone] 11/18/24 8:15 AM Rafael Madera MD [facility] [phone] * Telephone Encounter - Jessie Verma - 09/07/2024 10:31 AM EST We attempted to deliver your item at 10:57 am on September 03, 2024 [place] [address] and a notice was left because an authorized recipient was not available. You may arrange redelivery by using the Schedule a Redelivery feature on this page or may product picker the item at the Post Office indicated on the notice beginning September 04, 2024. If this item is unclaimed by September 18, 2024 then it willbe returned to sender. * Telephone Encounter - Jessie Verma - 09/03/2024 6:51 AM EST Your item arrived at our [facility] facility in [facility] on September 02, 2024 at9:32 am. The item is currently in transit to the destination. * Telephone Encounter - Jessie Verma - 09/01/2024 9:16 AM EST Certified letter mailed for tubal ligation consult [phone] * Telephone Encounter - Lila Escoto RN - 08/31/2024 3:58 PM EST Send certified letter please. * Telephone Encounter - Jessie Verma - 08/31/2024 11:03 AM EST No response from unable to reach letter mailed 08/23. Appointment for tubal ligation has not been rescheduled. Please advise * Telephone Encounter - Jessie Verma - 08/23/2024 2:45 PM EST 2nd attempt to reschedule appointment for tubal ligation LVM and mailed unable to reach letter * Telephone Encounter - Jayleen Vásquez - 08/18/2024 8:48 AM EST Attempted to call patient about missed about with no answer lvm for patient to call back and re-schedule documented in this encounter Plan of Treatment Upcoming Encounters Date Type Department Care Team (Latest Contact Info) Description 06/29/2025 3:45 PM EDT CPE - Comprehensive Physical Exam [facility] [address] [place] [id number] Rafael Madera MD [address] [place] [address] Return for Wellness Visit / CompletePhysical Exam in 2024 . documented as of this encounter Visit Diagnoses Not on filedocumented in this encounter Care Teams Fluid Dynamicist Relationship Specialty Start Date End Date Rafael Madera MD [address] [place] [address] PCP - General Family Medicine 08/20/23 Rafael Funk, [facility] [address] [place] [address] Partner 11/10/23 documented as of this encounter
--- OUTSIDE RECORDS SUMMARY | 2024-11-24 12:34 | XMS_ITS | Encounter Summary ---
Author Organization [facility] Address [address] [place] [address] Care Team Providers Care Professor Computer Science Name Role Phone Rafael Madera MD Primary Care Provider [phone] Rafael Funk [facility] Unavailable [phone] Encounter Details Date Type Department Care Team (Late st Contact Info) Description 03/23/2024 Orders Only [facility] Otolaryngology [address] [facility] [address] [place] [address] Fitz Dhaliwal MD [address] [place] [address] Social History Tobacco Use Types Packs/Day Years [...] PM EDT CPE - Comprehensive Physical Exam [facility] [address] [place] [id number] Rafael Madera MD [address] [place] [address] Return for Wellness Visit / CompletePhysical Exam in 2024 . documented as of this encounter Procedures * Due to [facility] law, this organization might not be sharing negative HIV tests. Procedure Name Priority Date/Time Associated Diagnosis Comments CULTURE, DEEP WOUND, AEROBIC AND ANAEROBIC W/GRAM STAIN Routine 03/23/2024 4:15 PM EDT Cyst of ear canal documented in this encounter Results * Due to [place] [employer] law, this organization might not be sharing negative HIV tests. * CULTURE, DEEP WOUND, AEROBIC AND ANAEROBIC W/GRAM STAIN (03/23/2024 4:15 PM EDT) Bacteria culture SEE NOTE [facility] Comment: ??CULTURE, ANAEROBIC BACTERIA W/GRAM STAIN ??Micro Number: ?[id number] ??Test Status: ? Final ??Specimen Source: ?? Not given ??Specimen Quality: ??Adequate ??Gram Stain: ?No white blood cells seen ? No epithelial cells seen ? Few Gram positive bacilli ? Rare Gram positive cocci ??Result: ?Heavy growth of Cutibacterium acnes Bacteria culture SEE NOTE [facility] Comment: ??CULTURE, AEROBIC BACTERIA ??Micro Number: ?[id number] ??Test Status: ? Final ??Specimen Source: ?? Not given ??Specimen Quality: ??Adequate ??Result: ?Growth of skin rodger (note: Growth does not ? include S. aureus, beta-hemolytic Streptococci ? or P. aeruginosa). ??COMMENT: ? No source was provided. The specimen was tested ? and reported based upon the test code ordered. ? If this is incorrect, please contact client ? services. Cyst EAR STRUCTURE / Unknown 03/23/2024 4:15 PM EDT 03/24/2024 12:22 AM EDT Narrative Resulting Agency Comment [id number] Fitz Dhaliwal MD LABORATORY Final Result [facility] [address] [place] [address] documented in this encounter Visit Diagnoses Diagnosis Cyst of ear canal Other disorder of external ear documented in this encounter Care Teams Professor Computer Science Relationship Specialty Start Date End Date Rafael Madera MD [address] [place] [address] PCP - General Family Medicine 08/20/23 Rafael Funk, [facility] [address] [place] [address] Partner 11/10/23 documented as of this encounter
== END 2024-11-24 11:03 | disposition home or self-care (01) ==
LOC: HO.HBS 10:51
PROVIDERS: Visit Provider Physician Assistant Surgical
DX: M79.3 Panniculitis, unspecified (principal); Z90.3 Acquired absence of stomach [part of]; Z98.84 Bariatric surgery status
CPT/HCPCS: 98967